=== PATIENT | female | born 1950 | race Caucasian/White ===

== ENCOUNTER 2017-04-20 00:40 | Day surgery (SDC) | payer OTHER ==
[~2017-04-20 00:40] MED LIST: ALBU90OI6 INH; ALBU90OI61 INH; ASPI81EC; ATEN50; ATOR10; AZIT250 PO; Altoprev20 MG; Aspirin EC81 MG; BUME1 PO; Bumetanide0.5 MG; CARI350 PO; CHOL10002; Coumadin5 MG PO; DULERA 200 MCG/13 GM INH; FURO40; FURO40 PO; GABA100; GABA300 PO; GLIP10 PO; GLIP2.5ER; HYDGUAL120 PO; IBUP800 PO; INSULANPEN SC; Keflex500 MG PO; LACT10SY PO; LEVFLO500 PO; LEVO750 PO; LEVSOD75; LEVSOD75 PO; LISI20 PO; LISI5 PO; LOSA25; LOVA40 PO; Lovastatin20 MG PO; META800 PO; METF500C PO; METH10; METH10 PO; METPRE4DP PO; Norco 5-325 Ta1 EACH PO; Novolog Fl100 UNIT/1 INJ; OXYACE5T PO; OXYC10ER PO; OXYC15ER PO; OXYC30 PO; OXYC30ER PO; PRED20 PO; Prinivil10 MG PO; RANI150 PO; ROSU10TA; ROXICODONE5 MG PO; SITA100T2 PO; SITA25T2 PO; TIOT18 INH; VARE1 PO; VENL37.5; VENL37.5 PO; VITAMIN D32000 UNI1 PO; WARF10 PO; WARF5 PO; Women's Daily1 EACH PO; [UNRECOGNIZED DRUG - MIXTURE]; [UNRECOGNIZED DRUG - OTHER] PO
[2017-04-20] MEDS ORDERED: DULERA 200 MCG/13 GM INH (11:19)
== END 2017-04-20 10:48 | disposition home or self-care (01) ==
LOC: ATC 00:40
DX: D12.3 Benign neoplasm of transverse colon (principal); Z86.718 Personal history of other venous thrombosis and embolism; E66.9 Obesity, unspecified; E11.40 Type 2 diabetes mellitus with diabetic neuropathy, unspecified
CPT/HCPCS: 96372; J1650

== ENCOUNTER 2017-04-21 00:20 | Day surgery (SDC) | payer OTHER | END 2017-04-21 10:12 | disposition home or self-care (01) | LOC: ATC 00:20 | DX: Z86.718 Personal history of other venous thrombosis and embolism (principal); K63.5 Polyp of colon; Z79.01 Long term (current) use of anticoagulants; Z79.4 Long term (current) use of insulin; Z79.84 Long term (current) use of oral hypoglycemic drugs; Z88.8 Allergy status to other drugs, medicaments and biological substances | CPT/HCPCS: 96372; J1650 ==

== ENCOUNTER 2017-04-22 00:48 | Day surgery (SDC) | payer OTHER | END 2017-04-22 10:42 | disposition home or self-care (01) | LOC: ATC 00:48 | DX: D12.3 Benign neoplasm of transverse colon (principal); Z86.718 Personal history of other venous thrombosis and embolism; E11.40 Type 2 diabetes mellitus with diabetic neuropathy, unspecified; Z79.4 Long term (current) use of insulin; F17.210 Nicotine dependence, cigarettes, uncomplicated | CPT/HCPCS: 96372; J1650 ==

== ENCOUNTER 2017-04-23 00:19 | Day surgery (SDC) | payer OTHER | END 2017-04-23 11:00 | disposition home or self-care (01) | LOC: ATC 00:19 | DX: D12.3 Benign neoplasm of transverse colon (principal); E11.40 Type 2 diabetes mellitus with diabetic neuropathy, unspecified; F17.210 Nicotine dependence, cigarettes, uncomplicated; Z86.718 Personal history of other venous thrombosis and embolism | CPT/HCPCS: 96372; J1650 ==

== ENCOUNTER 2017-07-13 00:18 | Day surgery (SDC) | payer OTHER | END 2017-07-13 08:40 | disposition home or self-care (01) | LOC: ATC 00:18 | DX: Z86.718 Personal history of other venous thrombosis and embolism (principal); K63.5 Polyp of colon; E66.9 Obesity, unspecified; Z79.01 Long term (current) use of anticoagulants; F17.210 Nicotine dependence, cigarettes, uncomplicated; E11.40 Type 2 diabetes mellitus with diabetic neuropathy, unspecified | CPT/HCPCS: 96372; J1650 ==

== ENCOUNTER 2017-07-16 01:11 | Day surgery (SDC) | payer OTHER | END 2017-07-16 09:42 | disposition home or self-care (01) | LOC: ATC 01:11 | DX: Z86.718 Personal history of other venous thrombosis and embolism (principal); K63.5 Polyp of colon; E11.9 Type 2 diabetes mellitus without complications; Z79.4 Long term (current) use of insulin | CPT/HCPCS: 96372; J1650 ==

== ENCOUNTER 2018-04-17 10:32 | Observation (INO) | payer OTHER ==
[~2018-04-17] VITALS: Ht 154.9 cm; Wt 87.0 kg
[~2018-04-17 10:32] MED LIST changes: +BUME2 PO; -Bumetanide0.5 MG
[2018-04-17 11:34] LABS: BASOPHILS ABSOLUTE AUTO 0.08 K/mm3 (0.00-0.23); BASOPHILS PERCENT AUTO 0 % (0-2); EOSINOPHILS ABSOLUTE AUTO 0.25 K/mm3 (0.00-0.68); EOSINOPHILS PERCENT AUTO 1 % (0-6); Hemoglobin 14.3 g/dL (11.5-16.0); IMMATURE GRAN ABSOLUTE AUTO 0.13 K/mm3 (0.00-0.10); IMMATURE GRAN PERCENT AUTO 1 % (0-1); LYMPHOCYTES PERCENT AUTO 17 % (21-46); MONOCYTES PERCENT AUTO 11 % (4-13); Mean Corpuscular HGB 29.2 pg (26.0-34.0); Mean Corpuscular HGB Conc 31.8 g/dL (31.5-36.5); Mean Corpuscular Volume 92 fL (80-100); NEUTROPHILS ABSOLUTE AUTO 13.68 K/mm3 (1.96-9.15); NEUTROPHILS PERCENT AUTO 70 % (41-73); Platelet Count 220 K/mm3 (150-400); RDW Coefficient Variation 14.5 % (11.7-14.2); RDW Standard Deviation 49.1 fL (35.1-46.3); Red Blood Cell Count 4.89 M/mm3 (3.80-5.20); White Blood Cell Count 19.44 K/mm3 (4.00-11.30)
[2018-04-17 11:58] LABS: Alanine Aminotransfer (ALT/SGP 16 U/L (12-78); Albumin, Blood 2.7 g/dL (3.4-5.0); Albumin/Globulin Ratio 0.5 (0.8-1.8); Alk Phos 106 U/L (50-136); Anion Gap 6 mmol/L (6-16); Aspartate Aminotrans (AST/SGOT 31 U/L (12-37); Bilirubin, Total 1.2 mg/dL (0.1-1.0); Blood Urea Nitrogen 41 mg/dL (8-24); Bun/Creatinine Ratio 30.8 (12.0-20.0); CO2, Blood 31 mmol/L (21-32); Calcium, Blood 8.5 mg/dL (8.5-10.1); Chloride, Blood 97 mmol/L (98-108); Creatinine, Blood 1.33 mg/dL (0.40-1.00); Glomerular Filtration Rate 42 (60-); Glucose, Blood 152 mg/dL (70-99); Potassium, Blood 4.4 mmol/L (3.5-5.5); Sodium, Blood 134 mmol/L (136-145); Total Protein, Blood 7.7 g/dL (6.4-8.2); Troponin I <0.015 ng/mL (0.000-0.040)
[2018-04-17] MEDS ORDERED: TRULICITY0.75 MG/0. (12:00)
[2018-04-17 12:03] LABS: Influenza A Negative (NEGATIVE); Influenza B Negative (NEGATIVE)
[2018-04-17 14:48] LABS: CPK Creatine Kinase 174 U/L (26-193)
[2018-04-17 15:58] LABS: Source, Urine Voided
[2018-04-17 16:21] LABS: Appearance, Urine Hazy (Clear); Bilirubin, Urine Neg (Neg); Blood, Urine 2+ (Neg); Color, Urine Yellow (P-Yellow); Glucose Qualitative, Urine Neg (Neg); Ketones, Urine Neg (Neg); Leukocyte Esterase, Urine 3+ (Neg); Nitrite, Urine Pos (Neg); Protein, Urine 2+ (Neg); Urobilinogen, Urine 1+ (Normal)
[2018-04-17 16:45] LABS: White Blood Cells, Urine 25-50 /hpf (0-5)
[2018-04-17 16:53] LABS: Bacteria Rare /hpf; Red Blood Cells, Urine 0-2 /hpf (0-2); Squamous Epithelial Cells Few /hpf (Few)
--- NOTE | 2018-04-17 18:03 | NUR ---
PT NEW ADMIT THIS PM. PT AXO X4. PT C/O PAIN IN HER BACK WHICH SHE RATES A 7/10. MEDS GIVEN PER EMAR. PT DENIES N/V. DENIES SOB. DYSPNEA UPON EXERTION. RESP E/U AT REST ON 3.5 L O2 NC. LUNGS DIMINISHED T/O. 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 MED REC INCOMPLETE. PT REPORTS HER WILL BRING IN A MED LIST TOMMORROW MORNING. 1 ASSIST WITH GAIT BELT AND FWW TO THE BS. NO OTHER SIGNIFICANT CHANGES THIS SHIFT.
[2018-04-17 19:38] LABS: Source, Urine Clean Catch
[2018-04-17 19:49] LABS: Appearance, Urine Hazy (Clear); Bilirubin, Urine Neg (Neg); Blood, Urine 2+ (Neg); Color, Urine Yellow (P-Yellow); Glucose Qualitative, Urine Neg (Neg); Ketones, Urine Neg (Neg); Leukocyte Esterase, Urine 3+ (Neg); Nitrite, Urine Neg (Neg); Protein, Urine 2+ (Neg); Specific Gravity, Urine 1.015 (1.003-1.022); Urobilinogen, Urine 1+ (Normal)
[2018-04-17 20:06] LABS: White Blood Cells, Urine 50-100 /hpf (0-5)
[2018-04-17 20:07] LABS: Bacteria Mod /hpf; Squamous Epithelial Cells Few /hpf (Few)
[2018-04-17 20:53] LABS: Adenovirus Not Detected (NOT DETECT); Bordetella pertussis Not Detected (NOT DETECT); Chlamydophila pneumoniae Not Detected (NOT DETECT); Coronavirus 229E Not Detected (NOT DETECT); Coronavirus HKU1 Not Detected (NOT DETECT); Coronavirus NL63 Not Detected (NOT DETECT); Coronavirus OC43 Not Detected (NOT DETECT); Human Metapneumovirus Not Detected (NOT DETECT); Human Rhinovirus/Enterovirus Not Detected (NOT DETECT); Influenza A/2009-H1 Not Detected (NOT DETECT); Influenza A/H1 Not Detected (NOT DETECT); Influenza A/H3 Not Detected (NOT DETECT); Influenza B Not Detected (NOT DETECT); Mycoplasma pneumoniae Not Detected (NOT DETECT); Parainfluenza Virus 1 Not Detected (NOT DETECT); Parainfluenza Virus 2 Not Detected (NOT DETECT); Parainfluenza Virus 3 Not Detected (NOT DETECT); Parainfluenza Virus 4 Not Detected (NOT DETECT); Respiratory Syncytial Virus Not Detected (NOT DETECT)
[2018-04-17 22:21] LABS: Influenza A Not Detected (NOT DETECT)
--- NOTE | 2018-04-18 04:19 | NUR ---
SHIFT SUMMARY PATIENT HAD NO ACUTE CHANGES OBSERVED THIS SHIFT. AXOX 3 AND ONE ASSIST W/GAIT/FWW TO [facility] [place] TWO PIVS REMAIN INTACT. NS INFUSED AT 100 mL/HR AND COMPLETE X ONE BAG. CALL CENTER SPECIALIST REPORTS NSR 77. ON 3.5 L O2 N/C AND RA AT HOME. PATIENT REPORTS BACK PAIN X 2 AND RECEIVED FENTANYL 50 MCG PER EMAR. ED FENTANYL ORDER Q10M DC'D. DENIES SOB AND N/V. CBG 289. CALL LIGHT IN REACH. BED IN LOWEST POSITION. WILL CONTINUE TO MONITOR UNTIL DAY SHIFT NURSE ASSUMES CARE.
[2018-04-18 04:55] LABS: Hemoglobin 13.5 g/dL (11.5-16.0); Mean Corpuscular HGB 28.7 pg (26.0-34.0); Mean Corpuscular HGB Conc 31.4 g/dL (31.5-36.5); Mean Corpuscular Volume 91 fL (80-100); Mean Platelet Volume 11.3 fL (9.1-12.4); NRBC ABSOLUTE 0.03 K/mm3 (0.00-0.02); NRBC Auto 0.2 /100 WBC (0.0-0.2); Platelet Count 235 K/mm3 (150-400); RDW Coefficient Variation 14.6 % (11.7-14.2); RDW Standard Deviation 49.2 fL (35.1-46.3); Red Blood Cell Count 4.71 M/mm3 (3.80-5.20); White Blood Cell Count 15.09 K/mm3 (4.00-11.30)
[2018-04-18 05:20] LABS: Albumin, Blood 2.4 g/dL (3.4-5.0); Albumin/Globulin Ratio 0.5 (0.8-1.8); Bilirubin, Total 0.8 mg/dL (0.1-1.0); Bun/Creatinine Ratio 29.3 (12.0-20.0); Calcium, Blood 8.3 mg/dL (8.5-10.1); Creatinine, Blood 1.23 mg/dL (0.40-1.00); Globulin, Blood 4.9 g/dL (2.2-4.0); Potassium, Blood 3.6 mmol/L (3.5-5.5); Total Protein, Blood 7.3 g/dL (6.4-8.2)
--- NOTE | 2018-04-18 18:33 | NUR ---
PATIENT HAS CONTINUED TO ASK FOR AND RECIEVE PAIN MEDS PER EMAR. SHE C/O PAIN TO HER BACK AND NECK. SHE IS ABLE TO AMUBLATE SLOWLY AROUND THE ROOM AND TO [facility] [place]. SHE HAS NOT BEEN SOB OR NV. PATIENT REPORTED CONSTIPATION ISSUES DT HER PAIN MED HISTORY. LACTULOSE GIVEN.
--- NOTE | 2018-04-19 04:34 | NUR ---
SHIFT SUMMARY PATIENT HAD NO ACUTE CHANGES OBSERVED THIS SHIFT. AXOX 3. REPORTS BACK PAIN ND RECEIVED ULTRAM 100 MG PER EMAR. PATIENT REPORTS LARGE BM AFTER LACTULOSE GIVEN TIMES ONE. CBG 85. ON 3L O2 NC. FENTANY GIVEN X ONE FOR BACK PAIN. CALL LIGHT IN REACH. BED IN LOWEST POSITION. WILL CONTINUE TO MONITOR UNTIL DAY SHIFT NURSE ASSUMES CARE.
--- NOTE | 2018-04-19 12:53 | NUR ---
DISCHARGE 1200 PATIENT DISCHARGED TO HOME WITH HH. NURSE WENT OVER DISCHARGE PAPERS WITH PATIENT AND EDUCATED PATINET ON DIABETIC DIET. NO NEW MEDS ORDERED. PATIENT WAS DRESSED AND BELONGINGS PACKED BY FAMILY. IVS REMOVED WITH NO SS OF INFECTION NOTED. PATIENT TAKEN TO CAR IN BY AIDE.
== END 2018-04-19 12:00 | disposition home health service (06) ==
LOC: ER 10:32 → MEDS 10:33 → ER 14:17 → MEDS 14:17 → ER 04-18 10:33 → MEDS 04-18 10:33 → EDPENDDIS 04-19 09:30 → ENPENDDIS 04-19 09:30 → MEDS 04-19 12:00
PROVIDERS: Emergency Medicine; ADMIT Internal Medicine
DX: M54.9 Dorsalgia, unspecified (principal); R09.02 Hypoxemia; I13.0 Hypertensive heart and chronic kidney disease with heart failure and stage 1 through stage 4 chronic kidney disease, or unspecified chronic kidney disease; I50.32 Chronic diastolic (congestive) heart failure; E11.22 Type 2 diabetes mellitus with diabetic chronic kidney disease; N18.3 Chronic kidney disease, stage 3 (moderate); E66.9 Obesity, unspecified; R53.1 Weakness; E78.5 Hyperlipidemia, unspecified; J44.9 Chronic obstructive pulmonary disease, unspecified; F17.210 Nicotine dependence, cigarettes, uncomplicated; K21.9 Gastro-esophageal reflux disease without esophagitis; Z86.718 Personal history of other venous thrombosis and embolism; Z88.8 Allergy status to other drugs, medicaments and biological substances; Z79.899 Other long term (current) drug therapy; Z68.33 Body mass index [BMI] 33.0-33.9, adult
CPT/HCPCS: 36415; 71046; 71260; 72110; 80053; 81001; 82550; 82947; 84484; 85025; 85027; 87070; 87077; 87086; 87186; 87205; 87486; 87581; 87633; 87798; 87804; 93005; 93010; 94760; 96361; 96365; 96366; 96372; 96375; 96376; 97116; 97162; 97530; 99285-25; G0378; J0456; J0696; J1650; J1885; J2405; J3010; J7030; J7050; J7120; Q9967

== ENCOUNTER 2018-10-28 12:10 | Day surgery (SDC) | payer OTHER ==
[~2018-10-28] VITALS: Ht 154.9 cm; Wt 81.0 kg
[~2018-10-28 12:10] MED LIST changes: +Novolog100 UNIT/2 SC; +OXYC10TA19 PO; +TRULICITY0.75 MG/0. SC
[2018-10-28] MEDS ORDERED: LACT10SY PO (13:22)
[2018-10-28] MEDS ORDERED: VITAMIN D-32000 UNIT PO (13:22)
[2018-10-28] MEDS ORDERED: METF500C PO (13:22)
--- NOTE | 2018-10-28 16:21 | NUR ---
PATIENT ARRIVED TO ICU ROOM 3 VIA ICU BED FROM THE [facility] AFTER HAVING A RIGHT FTA PROCEDURE DONE, PROX. POPLITEAL, SFA, AND COMMON FEMORAL WERE DONE, LEFT GROIN SITE SOFT, NONTENDER, NO HEMATOMA OR BLEEDING NOTED, PATIENT STATES SHE HAS "SOME DISCOMFORT AND PAIN AT THE GROIN", AFEBRILE, PATIENT MOSTLY SLEEPING AT THIS TIME, GAVE SOME ICE CHIPS AND PATIENT SHOWED NO PROBLEMS SWALLOWING, PATIENT WAS PLACED ON MONITOR, ORIENTED TO NEW ENVIRONMENT AND ROOM, CALL LIGHT GIVEN AND EXPLAINED, PATIENT VERBALIZED UNDERSTANDING, CALL LIGHT IN REACH, WILL CONTINUE TO MONITOR.
--- NOTE | 2018-10-28 17:55 | NUR ---
SHIFT SUMMARY NOTE: PATIENT IS RESTING COMFORTABLY AND MOSTLY SLEEPING, EASILY AROUSED, LEFT GROIN SITE, HAS ANGIOSEAL AND OPSITE, NO BLEEDING, SOFT, NONTENDER, NO HEMATOMA PRESENT, PATIENT IS OTHERWISE ALERT AND ORIENTED, VERBALIZED CONCERNS ABOUT BEING DISCHARGED TONIGHT D/T HUSBANDS NECK INJURY, SWALLOWED ICE CHIPS WITHOUT ANY PROBLEMS, VSS, AFEBRILE, NO S/S OF PAIN AT THIS TIME, CALL LIGHT IN REACH, WILL CONTINUE TO MONITOR.
--- NOTE | 2018-10-28 18:45 | NUR ---
FAMILY IN TO SEE PATIENT.
--- NOTE | 2018-10-28 19:20 | NUR ---
ASSUMED CARE BEDSIDE REPORT RECIEVED. PT IS LAYING IN BED AWAKE, ALERT, AND ORIENTED. PT REQUESTING TO USE THE BATHROOM AT THIS TIME. PT ROLLED AND PLACED ON BED JORDAN. PT DENIES PAIN OR DISCOMFORT AT THIS TIME. VITAL SIGNS STABLE. PT ON 2L O2 NC. PT WITH OPSITE IN PLACE TO LEFT FEMORAL ACCESS SITE, SITE IS SOFT, NONTENDER, AND NO HEMATOMA PRESENT. IV SALINE LOCKED. DAUGHTER AT BEDSIDE. WILL CONTINUE TO MONITOR.
--- NOTE | 2018-10-29 06:10 | NUR ---
SHIFT SUMMARY NO ACUTE CHANGES THIS SHIFT. PT SLEPT OFF AND ON THROUGHOUT THE NIGHT. PT HAS REMAINED ALERT AND ORIENTED WHEN AWAKE. PT HAS DENIED PAIN OR DISCOMFORT. VITAL SIGNS HAVE REMAINED STABLE. LEFT FEMORAL GROIN ACCESS SITE HAS REMAINED STABLE WITH DRESSING C/D/I. PT TOLERATING PO INTAKE WELL. PT UP TO BSC TO VOID WITH 1 PERSON ASSIST. WILL CONTINUE TO MONITOR AND REPORT OFF TO ONCOMING RN.
--- NOTE | 2018-10-29 07:15 | NUR ---
START OF SHIFT NOTE: RECEIVED REPORT FROM JUAN LUIS PATEL RN, ASSUMED CARE, PATIENT IS AWAKE, ALERT AND ORIENTED, WATCHING TV, RLEFT GROIN ACCESS SITE C/D/I, NO BLEEDING, SOFT, NONTENDER, NO HEMATOMA PRESENT, PATIENT DENIES PAIN, AFEBRILE, VSS, BLOOD GLUCOSE 178, NO COVERAGE REQUIRED, PATIENT IS AN EXTENDED RECOVERY THAT STAYED OVERNIGHT D/T LACK OF CARE AT HOME LAST NIGHT, WILL DISCHARGE THIS AM WITH DAUGHTER AND , LUNG SOUNDS CLEAR, NSR, WITH HR IN 60'S, CALL LIGHT IN REACH, WILL CONTINUE TO MONITOR.
--- NOTE | 2018-10-29 09:33 | NUR ---
PATIENT DISCHARGED TO HOME, DISCHARGE INSTRUCTIONS VERBAL AND WRITTEN GIVEN AND EXPLAINED TO PATIENT, SPOUSE, AND FAMILY, ALL VERBALIZED UNDERSTANDING, PIV IN RIGHT FOREARM REMOVED WITH TIP AND TUBING INTACT, PATIENT TOLERATED WELL, PATIENT WAS INSTRUCTED TO CALL NINA HUBBARD AND MAKE A F/U APPOINTMENT TO SEE DR. PLAZA, PATIENT VERBALIZED UNDERSTANDING, PATIENT LEFT VIA HOME WHEELCHAIR ACCOMPANIED BY ALL BELONGINGS AND SPOUSE/DAUGHTER.
[2019-01-13] MEDS ORDERED: PROAIR HFA INH (14:32)
[2019-01-13] MEDS ORDERED: ALIVE WOMEN S PO (14:34)
[2019-01-13] MEDS ORDERED: [UNRECOGNIZED DRUG - OTHER] PO (14:34)
== END 2018-10-29 09:33 | disposition home or self-care (01) ==
LOC: MHTC 12:10 → ICUE 16:39 → MHTC 10-29 09:33
DX: E11.51 Type 2 diabetes mellitus with diabetic peripheral angiopathy without gangrene (principal); I70.202 Unspecified atherosclerosis of native arteries of extremities, left leg; I10 Essential (primary) hypertension; E78.5 Hyperlipidemia, unspecified; J45.909 Unspecified asthma, uncomplicated; E03.9 Hypothyroidism, unspecified; K21.9 Gastro-esophageal reflux disease without esophagitis; F17.210 Nicotine dependence, cigarettes, uncomplicated; E66.9 Obesity, unspecified; Z88.8 Allergy status to other drugs, medicaments and biological substances; Z79.899 Other long term (current) drug therapy; Z79.4 Long term (current) use of insulin
CPT/HCPCS: 37225; 75625; 75710; 75716; 75774; 82947; 85347; 99152; 99153; C1714; C1769; C1884; C1887; C1894; C2623; J1644; J2250; J3010; J7030; J7042; Q9967

== ENCOUNTER 2019-01-14 09:44 | Day surgery (SDC) | payer OTHER ==
[~2019-01-14] VITALS: Ht 154.9 cm; Wt 82.0 kg
[~2019-01-14 09:44] MED LIST changes: +ALIVE WOMEN S PO; +PROAIR HFA INH; +VITAMIN D-32000 UNIT PO; +[UNRECOGNIZED DRUG - OTHER] PO
[2019-01-14 10:34] LABS: BASOPHILS ABSOLUTE AUTO 0.07 K/mm3 (0.00-0.23); BASOPHILS PERCENT AUTO 1 % (0-2); EOSINOPHILS ABSOLUTE AUTO 0.53 K/mm3 (0.00-0.68); EOSINOPHILS PERCENT AUTO 4 % (0-6); Hematocrit 45.8 % (33.0-51.0); Hemoglobin 14.3 g/dL (11.5-16.0); IMMATURE GRAN ABSOLUTE AUTO 0.04 K/mm3 (0.00-0.10); IMMATURE GRAN PERCENT AUTO 0 % (0-1); LYMPHOCYTES ABSOLUTE AUTO 4.54 K/mm3 (0.84-5.20); LYMPHOCYTES PERCENT AUTO 33 % (21-46); MONOCYTES ABSOLUTE AUTO 1.17 K/mm3 (0.16-1.47); MONOCYTES PERCENT AUTO 9 % (4-13); Mean Corpuscular HGB 28.2 pg (26.0-34.0); Mean Corpuscular HGB Conc 31.2 g/dL (31.5-36.5); Mean Corpuscular Volume 90 fL (80-100); Mean Platelet Volume 10.4 fL (9.1-12.4); NEUTROPHILS ABSOLUTE AUTO 7.45 K/mm3 (1.96-9.15); NEUTROPHILS PERCENT AUTO 54 % (41-73); Platelet Count 266 K/mm3 (150-400); RDW Coefficient Variation 16.1 % (11.7-14.2); RDW Standard Deviation 53.5 fL (35.1-46.3); Red Blood Cell Count 5.07 M/mm3 (3.80-5.20)
[2019-01-14 10:48] LABS: International Normalized Ratio 0.99; Prothrombin Time Results 10.5 Sec (9.7-11.5)
[2019-01-14 10:58] LABS: Calcium, Blood 9.1 mg/dL (8.5-10.1); Creatinine, Blood 1.28 mg/dL (0.40-1.00); Potassium, Blood 4.4 mmol/L (3.5-5.5)
--- NOTE | 2019-01-14 15:05 | NUR ---
PT SITTING UP, EATING AT THIS TIME. NADN. R FEMORAL SITE REMAINS CLEAR.VSS. CALL LIGHT WITHIN REACH.
--- NOTE | 2019-01-14 15:34 | NUR ---
PT FAMILY AT BEDSIDE. NADN. VSS. PT UP TO RESTROOM AND BACK WITHOUT DIFF. PT DRESSES SELF. SITE REMAINS CLEAR.
--- NOTE | 2019-01-14 15:50 | NUR ---
PT DC TO HOME VIA WC BY FRIEND. R FEM SITE REMAINS CLEAR.
== END 2019-01-14 22:54 | disposition home or self-care (01) ==
LOC: MHTC 09:44
PROVIDERS: Radiology Diagnostic Radiology
DX: E11.51 Type 2 diabetes mellitus with diabetic peripheral angiopathy without gangrene (principal); I70.202 Unspecified atherosclerosis of native arteries of extremities, left leg; E11.22 Type 2 diabetes mellitus with diabetic chronic kidney disease; D72.829 Elevated white blood cell count, unspecified
CPT/HCPCS: 36415; 37225; 75716; 75774; 80048; 85025; 85347; 85610; 99152; 99153; C1714; C1760; C1769; C1884; C1887; C1894; C2623; J1644; J2060; J2250; J3010; J7030; Q9967

== ENCOUNTER 2019-03-11 07:50 | Inpatient (IN) | payer OTHER ==
[~2019-03-11] VITALS: Ht 154.9 cm; Wt 83.5 kg
[2019-03-11 08:07] LABS: BASOPHILS ABSOLUTE AUTO 0.09 K/mm3 (0.00-0.23); BASOPHILS PERCENT AUTO 1 % (0-2); EOSINOPHILS PERCENT AUTO 3 % (0-6); Hematocrit 48.3 % (33.0-51.0); Hemoglobin 15.2 g/dL (11.5-16.0); IMMATURE GRAN ABSOLUTE AUTO 0.04 K/mm3 (0.00-0.10); IMMATURE GRAN PERCENT AUTO 0 % (0-1); LYMPHOCYTES ABSOLUTE AUTO 4.61 K/mm3 (0.84-5.20); LYMPHOCYTES PERCENT AUTO 32 % (21-46); MONOCYTES ABSOLUTE AUTO 1.24 K/mm3 (0.16-1.47); MONOCYTES PERCENT AUTO 9 % (4-13); Mean Corpuscular HGB 28.6 pg (26.0-34.0); Mean Corpuscular HGB Conc 31.5 g/dL (31.5-36.5); Mean Corpuscular Volume 91 fL (80-100); Mean Platelet Volume 10.9 fL (9.1-12.4); NEUTROPHILS ABSOLUTE AUTO 8.11 K/mm3 (1.96-9.15); NEUTROPHILS PERCENT AUTO 56 % (41-73); Platelet Count 229 K/mm3 (150-400); RDW Coefficient Variation 14.9 % (11.7-14.2); RDW Standard Deviation 49.8 fL (35.1-46.3); Red Blood Cell Count 5.31 M/mm3 (3.80-5.20); White Blood Cell Count 14.59 K/mm3 (4.00-11.30)
[2019-03-11 08:23] LABS: International Normalized Ratio 0.99; Prothrombin Time Results 10.5 Sec (9.7-11.5)
[2019-03-11 08:32] LABS: Albumin, Blood 3.4 g/dL (3.4-5.0); Albumin/Globulin Ratio 0.8 (0.8-1.8); Bilirubin, Total 0.4 mg/dL (0.1-1.0); Calcium, Blood 9.7 mg/dL (8.5-10.1); Creatinine, Blood 1.67 mg/dL (0.40-1.00); Globulin, Blood 4.3 g/dL (2.2-4.0); Potassium, Blood 4.3 mmol/L (3.5-5.5); Total Protein, Blood 7.7 g/dL (6.4-8.2); Troponin I 0.176 ng/mL (0.000-0.040)
--- NOTE | 2019-03-11 12:11 | NUR ---
pt arrived to pcu 8 via gurney from ed. report was obtained, pt able to ambulate to bathroom with a walker, she is a/ox3, pleasant and cooperative with care, follows commands well, denies chest pain at this time, lungs are clear t/o, resp even and unlabored, no cough noted at this time, she is currently on 2 liters 02 via n/c, hrr, tele in place running sr per monitor see strip, no edema noted, ppp+2, cap refill <3sec, vs stable, afebrile, iv sites are clear and patent, btx4 abd flat soft nontender, voids without diff, skin c/w/d, matank, jacqui, call light in reach. tech here to do echo.
[2019-03-11] MEDS ORDERED: Bumetanide2 MG PO (12:55)
[2019-03-11] MEDS ORDERED: LOVA40 PO (13:02)
--- NOTE | 2019-03-11 15:56 | NUR ---
echocardiogram completed
--- NOTE | 2019-03-11 19:34 | NUR ---
PT NOT SYMPTOMATIC THIS EVENING, CALLED AND SAID SHE CAN EAT DINNER THEN NPO AFTER MIDNIGHT, WILL CALL HER IF SHE BECOMES SYMTOMATIC. NO FURTHER CHANGES, CALL LIGHT IN REACH.
[2019-03-12 02:00] LABS: BASOPHILS ABSOLUTE AUTO 0.06 K/mm3 (0.00-0.23); BASOPHILS PERCENT AUTO 1 % (0-2); EOSINOPHILS ABSOLUTE AUTO 0.42 K/mm3 (0.00-0.68); EOSINOPHILS PERCENT AUTO 3 % (0-6); Hematocrit 41.5 % (33.0-51.0); Hemoglobin 13.3 g/dL (11.5-16.0); IMMATURE GRAN ABSOLUTE AUTO 0.04 K/mm3 (0.00-0.10); IMMATURE GRAN PERCENT AUTO 0 % (0-1); LYMPHOCYTES ABSOLUTE AUTO 4.98 K/mm3 (0.84-5.20); LYMPHOCYTES PERCENT AUTO 38 % (21-46); MONOCYTES ABSOLUTE AUTO 0.99 K/mm3 (0.16-1.47); MONOCYTES PERCENT AUTO 8 % (4-13); Mean Corpuscular HGB 29.6 pg (26.0-34.0); Mean Corpuscular Volume 92 fL (80-100); Mean Platelet Volume 11.4 fL (9.1-12.4); NEUTROPHILS ABSOLUTE AUTO 6.52 K/mm3 (1.96-9.15); NEUTROPHILS PERCENT AUTO 50 % (41-73); Platelet Count 203 K/mm3 (150-400); RDW Coefficient Variation 14.8 % (11.7-14.2); RDW Standard Deviation 50.2 fL (35.1-46.3); Red Blood Cell Count 4.49 M/mm3 (3.80-5.20); White Blood Cell Count 13.01 K/mm3 (4.00-11.30)
[2019-03-12 02:36] LABS: Albumin, Blood 2.8 g/dL (3.4-5.0); Albumin/Globulin Ratio 0.7 (0.8-1.8); Bilirubin, Total 0.3 mg/dL (0.1-1.0); Bun/Creatinine Ratio 26.3 (12.0-20.0); Calcium, Blood 8.7 mg/dL (8.5-10.1); Creatinine, Blood 1.71 mg/dL (0.40-1.00); Free Thyroxine 0.77 ng/dL (0.70-1.60); Globulin, Blood 3.8 g/dL (2.2-4.0); Potassium, Blood 4.6 mmol/L (3.5-5.5); Total Protein, Blood 6.6 g/dL (6.4-8.2)
[2019-03-12 02:41] LABS: Triiodothyronine, Free 1.78 pg/mL (2.18-3.98)
--- NOTE | 2019-03-12 06:28 | NUR ---
SHIFT SUMMARY PT RESTING IN ROOM COMFORTABLY AT THIS TIME. NO ACUTE CHANGES IN STATUS T/O NIGHT. PT SLEPT WELL T/O NIGHT, DENIED ANY CP. RESP EVEN UNLABORED ON 2L NC W/ SATS AT 100%, NC REMOVED PT SATS REMAINED >95% ON RA. HEPARIN GTT INFUSING IN PIV, NS ALSO INFUSING IN SECOND PIV. PT ABLE TO TRANSFER TO W/ SBA AND 4WW. DENIED OTHER NEEDS. CALL LIGHT IN REACH.
--- NOTE | 2019-03-12 08:00 | NUR ---
pt is scheduled for an angio this am, she has been npo since mid, a/ox3, pleasant and cooperative with care, is very anxious about procedure, lungs are clear, dim in bases, resp even and unlabored, is on r/a, no cough noted, hrr, tele in place running sr per monitor, see strip, no edema noted, ppp+1, cap refill <3sec, vs stable, afebrile, iv sites are clear and patent, btx4, abd flat soft nontender, voids without diff, skin c/w/d, maew, jacqui, call light in reach.
--- NOTE | 2019-03-12 10:18 | NUR ---
pt arrived to room from yard laborer, will need bipass, family is tearful, vs stable, tr band site is clear. call light in reach.
--- NOTE | 2019-03-12 10:51 | NUR ---
Spiritual care visit conducted. Patient is lying in bed and alert. Several family members are present in the room. Patient and family state that they recently received "deflating news." They explain that they were hoping to manage patient's heart issues with medication and now they hear that patient with haave to be transported north for heart surgery. I listen empathically and provide prayer. I will continue to remain available to patient and family.
--- NOTE | 2019-03-12 12:57 | NUR ---
PT LEFT FOR [facility] IN [place], REPORT WAS GIVEN TO [place] AMIN AND EMT THAT IS TRANSPORTING HER. FAMILY IN ATTENDENCE.
== END 2019-03-12 12:54 | disposition short-term general hospital (02) | DRG 281 ==
LOC: ER 07:50 → PCU 07:51
PROVIDERS: Emergency Medicine; Nurse Practitioner Acute Care; ADMIT Internal Medicine
PROC: 4A023N7 Measurement of Cardiac Sampling and Pressure, Left Heart, Percutaneous Approach (ICD-10-PCS; principal; 2019-03-12)
PROC: B2111ZZ Fluoroscopy of Multiple Coronary Arteries using Low Osmolar Contrast (ICD-10-PCS; 2019-03-12)
DX: I21.4 Non-ST elevation (NSTEMI) myocardial infarction (principal); F11.20 Opioid dependence, uncomplicated; I50.32 Chronic diastolic (congestive) heart failure; N17.9 Acute kidney failure, unspecified; I13.0 Hypertensive heart and chronic kidney disease with heart failure and stage 1 through stage 4 chronic kidney disease, or unspecified chronic kidney disease; Z90.81 Acquired absence of spleen; Z79.4 Long term (current) use of insulin; E11.22 Type 2 diabetes mellitus with diabetic chronic kidney disease; N18.3 Chronic kidney disease, stage 3 (moderate); E78.5 Hyperlipidemia, unspecified; E11.51 Type 2 diabetes mellitus with diabetic peripheral angiopathy without gangrene; K21.9 Gastro-esophageal reflux disease without esophagitis; J44.9 Chronic obstructive pulmonary disease, unspecified; Z86.718 Personal history of other venous thrombosis and embolism; F17.210 Nicotine dependence, cigarettes, uncomplicated; E03.9 Hypothyroidism, unspecified; E66.9 Obesity, unspecified; Z68.33 Body mass index [BMI] 33.0-33.9, adult; I25.10 Atherosclerotic heart disease of native coronary artery without angina pectoris
CPT/HCPCS: 36415; 71045; 80053; 82947; 84145; 84439; 84443; 84481; 84484; 85025; 85347; 85379; 85610; 85730; 93005; 93010; 93306; 93458; 94760; 96365; 96366; 96375; 99152; 99153; 99285-25; C1769; C1894; J1644; J2250; J2405; J3010; J7030; Q9967

== ENCOUNTER 2019-04-03 13:16 | Emergency (ER) | payer OTHER ==
[~2019-04-03] VITALS: Ht 154.9 cm; Wt 83.9 kg
[~2019-04-03 13:16] MED LIST changes: +Bumetanide2 MG PO
[2019-04-03 14:03] LABS: BASOPHILS ABSOLUTE AUTO 0.07 K/mm3 (0.00-0.23); BASOPHILS PERCENT AUTO 1 % (0-2); EOSINOPHILS ABSOLUTE AUTO 0.51 K/mm3 (0.00-0.68); EOSINOPHILS PERCENT AUTO 4 % (0-6); Hematocrit 40.4 % (33.0-51.0); Hemoglobin 12.4 g/dL (11.5-16.0); IMMATURE GRAN ABSOLUTE AUTO 0.04 K/mm3 (0.00-0.10); IMMATURE GRAN PERCENT AUTO 0 % (0-1); LYMPHOCYTES ABSOLUTE AUTO 3.55 K/mm3 (0.84-5.20); LYMPHOCYTES PERCENT AUTO 27 % (21-46); MONOCYTES ABSOLUTE AUTO 0.75 K/mm3 (0.16-1.47); MONOCYTES PERCENT AUTO 6 % (4-13); Mean Corpuscular HGB 28.4 pg (26.0-34.0); Mean Corpuscular HGB Conc 30.7 g/dL (31.5-36.5); Mean Corpuscular Volume 93 fL (80-100); Mean Platelet Volume 10.5 fL (9.1-12.4); NEUTROPHILS ABSOLUTE AUTO 8.42 K/mm3 (1.96-9.15); NEUTROPHILS PERCENT AUTO 63 % (41-73); Platelet Count 320 K/mm3 (150-400); RDW Coefficient Variation 15.1 % (11.7-14.2); RDW Standard Deviation 51.3 fL (35.1-46.3); Red Blood Cell Count 4.36 M/mm3 (3.80-5.20); White Blood Cell Count 13.34 K/mm3 (4.00-11.30)
[2019-04-03 14:24] LABS: Alanine Aminotransfer (ALT/SGP 18 U/L (12-78); Albumin, Blood 2.9 g/dL (3.4-5.0); Albumin/Globulin Ratio 0.7 (0.8-1.8); Alk Phos 77 U/L (50-136); Anion Gap 6 mmol/L (6-16); Aspartate Aminotrans (AST/SGOT 12 U/L (12-37); Bilirubin, Total 0.3 mg/dL (0.1-1.0); Blood Urea Nitrogen 23 mg/dL (8-24); Bun/Creatinine Ratio 21.3 (12.0-20.0); CO2, Blood 24 mmol/L (21-32); Calcium, Blood 8.5 mg/dL (8.5-10.1); Chloride, Blood 110 mmol/L (98-108); Creatinine, Blood 1.08 mg/dL (0.40-1.00); Globulin, Blood 3.9 g/dL (2.2-4.0); Glomerular Filtration Rate 53 (60-); Glucose, Blood 267 mg/dL (70-99); Potassium, Blood 4.7 mmol/L (3.5-5.5); Sodium, Blood 140 mmol/L (136-145); Total Protein, Blood 6.8 g/dL (6.4-8.2); Troponin I <0.015 ng/mL (0.000-0.040)
== END 2019-04-03 15:30 | disposition home or self-care (01) ==
LOC: ER 13:16
PROVIDERS: Emergency Medicine
DX: I50.22 Chronic systolic (congestive) heart failure (principal); E11.22 Type 2 diabetes mellitus with diabetic chronic kidney disease; N18.3 Chronic kidney disease, stage 3 (moderate); E11.51 Type 2 diabetes mellitus with diabetic peripheral angiopathy without gangrene; I73.9 Peripheral vascular disease, unspecified; E78.5 Hyperlipidemia, unspecified; J44.9 Chronic obstructive pulmonary disease, unspecified; F17.200 Nicotine dependence, unspecified, uncomplicated; Z88.8 Allergy status to other drugs, medicaments and biological substances; Z79.899 Other long term (current) drug therapy; Z79.4 Long term (current) use of insulin; Z79.51 Long term (current) use of inhaled steroids
CPT/HCPCS: 36415; 71046; 80053; 83880; 84484; 85025; 93005; 93010; 99284-25

== ENCOUNTER 2019-05-28 16:15 | Observation (INO) | payer OTHER ==
[~2019-05-28] VITALS: Ht 154.9 cm; Wt 81.4 kg
[~2019-05-28 16:15] MED LIST changes: -ALIVE WOMEN S PO; -Bumetanide2 MG PO; +METF500 PO; -PROAIR HFA INH; -[UNRECOGNIZED DRUG - OTHER] PO
[2019-05-28 17:00] LABS: BASOPHILS ABSOLUTE AUTO 0.05 K/mm3 (0.00-0.23); BASOPHILS PERCENT AUTO 0 % (0-2); EOSINOPHILS ABSOLUTE AUTO 0.43 K/mm3 (0.00-0.68); EOSINOPHILS PERCENT AUTO 3 % (0-6); Hematocrit 40.5 % (33.0-51.0); Hemoglobin 12.8 g/dL (11.5-16.0); IMMATURE GRAN ABSOLUTE AUTO 0.07 K/mm3 (0.00-0.10); IMMATURE GRAN PERCENT AUTO 0 % (0-1); LYMPHOCYTES ABSOLUTE AUTO 3.32 K/mm3 (0.84-5.20); LYMPHOCYTES PERCENT AUTO 21 % (21-46); MONOCYTES ABSOLUTE AUTO 0.84 K/mm3 (0.16-1.47); MONOCYTES PERCENT AUTO 5 % (4-13); Mean Corpuscular HGB 28.3 pg (26.0-34.0); Mean Corpuscular HGB Conc 31.6 g/dL (31.5-36.5); Mean Corpuscular Volume 89 fL (80-100); Mean Platelet Volume 11.1 fL (9.1-12.4); NEUTROPHILS ABSOLUTE AUTO 11.05 K/mm3 (1.96-9.15); NEUTROPHILS PERCENT AUTO 70 % (41-73); Platelet Count 303 K/mm3 (150-400); RDW Standard Deviation 48.8 fL (35.1-46.3); Red Blood Cell Count 4.53 M/mm3 (3.80-5.20); White Blood Cell Count 15.76 K/mm3 (4.00-11.30)
[2019-05-28 17:21] LABS: Alanine Aminotransfer (ALT/SGP 18 U/L (12-78); Albumin, Blood 3.1 g/dL (3.4-5.0); Albumin/Globulin Ratio 0.7 (0.8-1.8); Alk Phos 96 U/L (50-136); Anion Gap 3 mmol/L (6-16); Aspartate Aminotrans (AST/SGOT 28 U/L (12-37); Bilirubin, Total 0.4 mg/dL (0.1-1.0); Blood Urea Nitrogen 59 mg/dL (8-24); CO2, Blood 31 mmol/L (21-32); Calcium, Blood 8.8 mg/dL (8.5-10.1); Chloride, Blood 101 mmol/L (98-108); Creatinine, Blood 1.79 mg/dL (0.40-1.00); Globulin, Blood 4.6 g/dL (2.2-4.0); Glomerular Filtration Rate 30 (60-); Glucose, Blood 162 mg/dL (70-99); Sodium, Blood 135 mmol/L (136-145); Total Protein, Blood 7.7 g/dL (6.4-8.2); Troponin I <0.015 ng/mL (0.000-0.040)
[2019-05-28] MEDS ORDERED: ATOR40TA PO (18:22)
[2019-05-28] MEDS ORDERED: TICA90TA PO (18:22)
[2019-05-28] MEDS ORDERED: METO25 PO (18:23)
[2019-05-28] MEDS ORDERED: NITR.4SL SL (18:23)
[2019-05-28] MEDS ORDERED: ALIVE ONCE DAI1 EACH PO (19:57)
[2019-05-28] MEDS ORDERED: Aspir 8181 MG PO (19:57)
[2019-05-28] MEDS ORDERED: Ventolin/Prove6.7 GM INH (19:57)
[2019-05-28] MEDS ORDERED: CLON.1 PO (19:58)
[2019-05-28] MEDS ORDERED: MONT10T PO (19:58)
[2019-05-28] MEDS ORDERED: Bumetanide2 MG PO (20:00)
--- NOTE | 2019-05-28 22:15 | NUR ---
RECEIVED REPORT FROM [facility] ED RN. PT TRANSPORTED TO PCU VIA GURNEY, NO S/S ACUTE DISTRESS NOTED. ASSISTED PT TO A POSITION OF COMFORT. DENIES ANY OTHER NEEDS AT THIS TIME. CALL LIGHT AND POSSESSIONS IN REACH, WILL CONTINUE TO MONITOR.
[2019-05-29 04:45] LABS: Anion Gap 9 mmol/L (6-16); Blood Urea Nitrogen 60 mg/dL (8-24); Bun/Creatinine Ratio 34.3 (12.0-20.0); CO2, Blood 29 mmol/L (21-32); Calcium, Blood 8.5 mg/dL (8.5-10.1); Chloride, Blood 101 mmol/L (98-108); Creatinine, Blood 1.75 mg/dL (0.40-1.00); Glomerular Filtration Rate 31 (60-); Glucose, Blood 183 mg/dL (70-99); Potassium, Blood 3.2 mmol/L (3.5-5.5); Sodium, Blood 139 mmol/L (136-145); Troponin I <0.015 ng/mL (0.000-0.040)
--- NOTE | 2019-05-29 08:15 | NUR ---
PT RESTING IN BED COMFORTABLY, IN NO ACUTE DISTRESS. WAS MONITORED EVERY 1-2 HOURS WITH NEEDS MET. DENIES ANY NEEDS AT THIS TIME. CALL LIGHT AND POSSESSIONS IN REACH, BED IN LOW AND LOCKED POSITION. REPORTED OFF TO ELOISA MARRUFO.
--- NOTE | 2019-05-29 17:29 | NUR ---
SHIFT SUMAMRY PT A&Ox4; CALM AND COOPERATIVE [facility]. PT RESTING IN BED DURING SHIFT. UP TO BATHROOM IND THIS AM; PT REPORTS SIGNIFICANT SOB WITH EXERTION; SBA TO BATHROOM THIS AFTERNOON. PT REPORTS PAIN TO BLE; MEDICATED WITH SCHEDULED METHADONE PER EMAR WITH POSITIVE RESULTS. SPO2 >90% ON RA, PT REPORTS SOB WITH EXERTION; LS CLEAR T/O SHIFT; NO S/SX OF DISTRESS AT REST. PT DENIES CHEST PAIN/PRESSURE; NAUSEA AND DIZZINESS T/O SHIFT. PT STARTED ON PLAVIX THIS EVENING. VSS. NO OTHER ACUTE CHANGES NOTED DURING SHIFT. WILL CONTINUE TO MONITOR UNITL REPORT GIVEN TO ONCOMING RN.
[2019-05-30 04:09] LABS: Bun/Creatinine Ratio 32.1 (12.0-20.0); Calcium, Blood 8.8 mg/dL (8.5-10.1); Creatinine, Blood 1.56 mg/dL (0.40-1.00); Potassium, Blood 4.1 mmol/L (3.5-5.5)
--- NOTE | 2019-05-30 06:14 | NUR ---
SHIFT SUMMARY PATIENT PLEASENT THROUGHOUT THE NIGHT, HOWEVER PATIENT APPEARS UNRECEPTIVE TO EDUCATION REGARDING DIET AND HOW IT AFFECTS BLOOD SUGAR LEVELS. PATIENT HAS APPEARED TO SLEEP WELL THROUGHOUT THE NIGHT. PATIENT MEDICATED FOR PAIN PER EMAR. PATIENT CURRENTLY APPEARS TO BE SLEEPING. WILL CONTINUE TO MONITOR PATIENT AND GIVE BEDSIDE REPORT TO ONCOMING RN.
--- NOTE | 2019-05-30 18:15 | NUR ---
SHIFT SUMMARY PT A&Ox4; CALM AND COOPERATIVE WITH CARE. PT RESTING IN BED; SBA TO BATHROOM; THIS AM PT REPORTING SIGNIFICANT SOB ON EXERTION; USING 2L O2 VIA NC PRN FOR SOB; THIS AFTENROON PT STATES LESS SOB WITH EXERTION, NO LONGER REQUIRING O2 FOR RECOVERY AFTER AMBULATION. SPO2 >90% T/O SHIFT; LS CLEAR; DIM IN BASES T/O SHIFT. PT REPORTS TAKING HOME LACTULOSE; DENIES HAVING ADDITIONAL HOME MEDICATIONS IN ROOM; DR LAO NOTIFIED. PT REPORTS TAKING LANTUS 50UNITS DAILY; NEW ORDERS FOR ENTERED FOR LANTUS 20 UNITS. PLANS FOR NPO AFTER MIDNIGHT; PT EDCUATED. PER TELE HR 50-70'S; VSS. NO OTHER ACUTE CHANGES NOTED DURING SHIFT. WILL CONTINUE TO MONITOR UNITL REPORT GIVEN TO ONCJOANA AMIN
--- NOTE | 2019-05-30 19:15 | NUR ---
OPENING NOTE RECEIVED REPORT FROM YARON AMIN AND ASSUMED PT CARE. PT IS UP TO THE BATHROOM INDEPENDENTLY, DENIES ANY NEEDS OR CONCERNS AT THIS TIME. PT IS MEDICAL STATUS WITH TELE, MONITOR SHOWS SR IN THE 60'S WITH OCCASSIONAL PVC'S. WILL CONTINUE TO MONITOR FOR RESPIRATORY OR CARDIAC CHANGES, PLAN FOR ANGIO IN THE AM.
--- NOTE | 2019-05-31 05:48 | NUR ---
SHIFT SUMMARY PT HAS RESTED OFF AND ON THROUGH SHIFT, C/O MILD ANXIETY R/T PLAN FOR ANGIO THIS AM. ANSWERED QUESTIONS AND PROVIDED REASSURANCE. PT STATES "I JUST DIDN'T WANT TO HAVE TO GO THROUGH THIS AGAIN". AGREEABLE TO PLAN FOR ANGIO "IF THE DOCTOR THINKS I NEED IT THIS MORNING". DENIES CHEST PAIN, C/O SHORTNESS OF BREATH WITH AMBULATION TO BRP. 2L O2 PRN FOR RECOVERY FROM [facility]. DENIES OTHER COMPLAINTS THIS MORNING. OVERALL STATUS: UNCHANGED. WILL REPORT OFF TO THE DAY SHIFT RN, PT DECLINES BEDSIDE REPORT THIS MORNING AND STATES "JUST LET ME SLEEP".
[2019-05-31 09:08] LABS: Bun/Creatinine Ratio 31.1 (12.0-20.0); Calcium, Blood 9.1 mg/dL (8.5-10.1); Creatinine, Blood 1.51 mg/dL (0.40-1.00); Potassium, Blood 4.2 mmol/L (3.5-5.5)
[2019-05-31] MEDS ORDERED: AMLO5 PO (11:51)
[2019-05-31] MEDS ORDERED: CLOP75 PO (11:51)
--- NOTE | 2019-05-31 12:56 | NUR ---
DISCHARGE TEACHING DONE AT THIS TIME. PT STATES UNDERSTANDING. EDUCATION MATERIAL HAS BEEN PRINTED AND GIVEN TO HER. PT INSTRUCTED TO F/U WITH CARDIOLOGY IN 1 WEEK OR JESSICA IN ER FOR ANY WORSENING PROBLEMS OR CONCERNS. PT IS CURRENTLY SITTING AT THE BEDSIDE EATING LUNCH, VSS, SHE IS CALLING HER CAREGIVER FOR TRANSPORTATION. CALL LIGHT IN REACH.
== END 2019-05-31 14:04 | disposition home or self-care (01) ==
LOC: ER 16:15 → PCU 16:16
PROVIDERS: Hospitalist; Internal Medicine Interventional Cardiology; Physician Assistant; ADMIT Internal Medicine
DX: R06.09 Other forms of dyspnea (principal); N17.9 Acute kidney failure, unspecified; I13.0 Hypertensive heart and chronic kidney disease with heart failure and stage 1 through stage 4 chronic kidney disease, or unspecified chronic kidney disease; E11.22 Type 2 diabetes mellitus with diabetic chronic kidney disease; E11.51 Type 2 diabetes mellitus with diabetic peripheral angiopathy without gangrene; I25.10 Atherosclerotic heart disease of native coronary artery without angina pectoris; I50.20 Unspecified systolic (congestive) heart failure; Z88.8 Allergy status to other drugs, medicaments and biological substances; Z79.02 Long term (current) use of antithrombotics/antiplatelets; Z79.82 Long term (current) use of aspirin; Z79.84 Long term (current) use of oral hypoglycemic drugs; Z79.899 Other long term (current) drug therapy; N18.3 Chronic kidney disease, stage 3 (moderate); J44.9 Chronic obstructive pulmonary disease, unspecified; F17.210 Nicotine dependence, cigarettes, uncomplicated
CPT/HCPCS: 36415; 71046; 80048; 80053; 82947; 83880; 84484; 85025; 93005; 93010; 93308; 93321; 96372; 99285-25; A9270-GY; G0378; J1644; J7030

== ENCOUNTER 2019-08-03 10:18 | Emergency (ER) | payer OTHER ==
[~2019-08-03] VITALS: Ht 154.9 cm; Wt 81.7 kg
[~2019-08-03 10:18] MED LIST changes: +ALIVE ONCE DAI1 EACH PO; +AMLO5 PO; +ATOR40TA PO; +Aspir 8181 MG PO; +Bumetanide2 MG PO; +CLON.1 PO; +CLOP75 PO; +METO25 PO; +MONT10T PO; +NITR.4SL SL; +TICA90TA PO; +Ventolin/Prove6.7 GM INH
[2019-08-03 11:15] LABS: BASOPHILS ABSOLUTE AUTO 0.05 K/mm3 (0.00-0.23); BASOPHILS PERCENT AUTO 0 % (0-2); EOSINOPHILS ABSOLUTE AUTO 0.28 K/mm3 (0.00-0.68); EOSINOPHILS PERCENT AUTO 2 % (0-6); Hematocrit 41.4 % (33.0-51.0); Hemoglobin 13.5 g/dL (11.5-16.0); IMMATURE GRAN ABSOLUTE AUTO 0.04 K/mm3 (0.00-0.10); IMMATURE GRAN PERCENT AUTO 0 % (0-1); LYMPHOCYTES ABSOLUTE AUTO 3.49 K/mm3 (0.84-5.20); LYMPHOCYTES PERCENT AUTO 27 % (21-46); MONOCYTES ABSOLUTE AUTO 0.86 K/mm3 (0.16-1.47); MONOCYTES PERCENT AUTO 7 % (4-13); Mean Corpuscular HGB 28.2 pg (26.0-34.0); Mean Corpuscular HGB Conc 32.6 g/dL (31.5-36.5); Mean Corpuscular Volume 86 fL (80-100); Mean Platelet Volume 10.7 fL (9.1-12.4); NEUTROPHILS ABSOLUTE AUTO 8.41 K/mm3 (1.96-9.15); NEUTROPHILS PERCENT AUTO 64 % (41-73); Platelet Count 303 K/mm3 (150-400); RDW Coefficient Variation 13.7 % (11.7-14.2); RDW Standard Deviation 43.1 fL (35.1-46.3); Red Blood Cell Count 4.79 M/mm3 (3.80-5.20); White Blood Cell Count 13.13 K/mm3 (4.00-11.30)
[2019-08-03 11:29] LABS: Albumin, Blood 3.5 g/dL (3.4-5.0); Albumin/Globulin Ratio 0.6 (0.8-1.8); Bilirubin, Total 0.4 mg/dL (0.1-1.0); Bun/Creatinine Ratio 38.3 (12.0-20.0); Creatinine, Blood 2.77 mg/dL (0.40-1.00); Globulin, Blood 5.4 g/dL (2.2-4.0); Potassium, Blood 2.6 mmol/L (3.5-5.5); Total Protein, Blood 8.9 g/dL (6.4-8.2)
[2019-08-03] MEDS ORDERED: K-Dur20 MEQ PO (13:34)
== END 2019-08-03 14:29 | disposition home or self-care (01) ==
LOC: ER 10:18
PROVIDERS: Emergency Medicine
DX: E87.6 Hypokalemia (principal); E87.1 Hypo-osmolality and hyponatremia; E86.0 Dehydration; E11.22 Type 2 diabetes mellitus with diabetic chronic kidney disease; N18.9 Chronic kidney disease, unspecified; I25.2 Old myocardial infarction; E11.51 Type 2 diabetes mellitus with diabetic peripheral angiopathy without gangrene; I73.9 Peripheral vascular disease, unspecified; J44.9 Chronic obstructive pulmonary disease, unspecified; I50.9 Heart failure, unspecified; K21.9 Gastro-esophageal reflux disease without esophagitis; Z86.718 Personal history of other venous thrombosis and embolism; E78.5 Hyperlipidemia, unspecified; Z87.891 Personal history of nicotine dependence; Z88.8 Allergy status to other drugs, medicaments and biological substances; Z79.82 Long term (current) use of aspirin; Z79.899 Other long term (current) drug therapy
CPT/HCPCS: 36415; 80053; 85025; 93005; 93010; 96360; 99283-25; A9270; J7030

== ENCOUNTER 2019-08-18 06:33 | Day surgery (SDC) | payer OTHER ==
[~2019-08-18] VITALS: Ht 129.5 cm; Wt 81.0 kg
[~2019-08-18 06:33] MED LIST changes: +K-Dur20 MEQ PO; +NOVOLOG FL100 UNIT/1
[2019-08-18 07:35] LABS: Bun/Creatinine Ratio 42.7 (12.0-20.0); Creatinine, Blood 2.34 mg/dL (0.40-1.00); Potassium, Blood 3.7 mmol/L (3.5-5.5)
--- NOTE | 2019-08-18 11:15 | NUR ---
PT VERBALIZED UNDERSTANDING OF WRITTEN AND VERBAL D/C INST. PT UP TO BATHROOM /C SBA. TOLERATED WELL. -BLEEDING OR SWELLING R GROIN. IV REMOVED. PT TAKEN OUT OF THE HRT CENTER VIA W/C.
== END 2019-08-18 11:15 | disposition home or self-care (01) ==
LOC: MHTC 06:33
PROVIDERS: Radiology Diagnostic Radiology
DX: I70.1 Atherosclerosis of renal artery (principal); I10 Essential (primary) hypertension; E11.9 Type 2 diabetes mellitus without complications; E66.9 Obesity, unspecified; J45.909 Unspecified asthma, uncomplicated; K21.9 Gastro-esophageal reflux disease without esophagitis; E03.9 Hypothyroidism, unspecified; F17.210 Nicotine dependence, cigarettes, uncomplicated; Z79.899 Other long term (current) drug therapy; Z79.82 Long term (current) use of aspirin; Z79.02 Long term (current) use of antithrombotics/antiplatelets; Z79.4 Long term (current) use of insulin; Z68.42 Body mass index [BMI] 45.0-49.9, adult
CPT/HCPCS: 36252; 80048; 82947; 99152; 99153; C1760; C1769; C1887; C1894; J1644; J2250; J3010; J7030; J7040; J7042; Q9967

== ENCOUNTER 2019-09-14 06:20 | Day surgery (SDC) | payer OTHER ==
[~2019-09-14] VITALS: Ht 154.9 cm; Wt 81.0 kg
[~2019-09-14 06:20] MED LIST changes: +BASAGLAR K100 UNIT/1 SC; -NOVOLOG FL100 UNIT/1; +NOVOLOG FL100 UNIT/3 SC; +VITAMIN D31000 UNI1 PO; +[UNRECOGNIZED DRUG - OTHER] PO
--- NOTE | 2019-09-14 12:52 | NUR ---
PT UP TO BATHROOM, UP AND DRESSED. DISCHARGE GONE OVER WITH PT, VERBALIZES UNDERSTANDING. SALINE LOCK OUT WITH CATHETER INTACT. L FEM SITE STABLE. PT TO PRIVATE VEHICLE PER W/C.
== END 2019-09-14 13:00 | disposition home or self-care (01) ==
LOC: MHTC 06:20
DX: I70.213 Atherosclerosis of native arteries of extremities with intermittent claudication, bilateral legs (principal); Z88.8 Allergy status to other drugs, medicaments and biological substances
CPT/HCPCS: 37224; 37228; 75716; 75774; 82947; 85347; 99152; 99153; C1725; C1760; C1769; C1887; C1894; C2623; J1644; J2250; J3010; J7030; Q9967

== ENCOUNTER 2020-04-29 12:50 | Emergency (ER) | payer OTHER ==
[~2020-04-29] VITALS: Ht 154.9 cm; Wt 74.8 kg
[~2020-04-29 12:50] MED LIST changes: +NEURONTIN300 MG PO
[2020-04-29 14:40] LABS: BASOPHILS ABSOLUTE AUTO 0.04 K/mm3 (0.00-0.23); BASOPHILS PERCENT AUTO 0 % (0-2); EOSINOPHILS ABSOLUTE AUTO 0.08 K/mm3 (0.00-0.68); EOSINOPHILS PERCENT AUTO 1 % (0-6); Hematocrit 35.9 % (33.0-51.0); Hemoglobin 11.6 g/dL (11.5-16.0); IMMATURE GRAN ABSOLUTE AUTO 0.08 K/mm3 (0.00-0.10); IMMATURE GRAN PERCENT AUTO 1 % (0-1); LYMPHOCYTES ABSOLUTE AUTO 2.37 K/mm3 (0.84-5.20); LYMPHOCYTES PERCENT AUTO 16 % (21-46); MONOCYTES ABSOLUTE AUTO 0.79 K/mm3 (0.16-1.47); MONOCYTES PERCENT AUTO 5 % (4-13); Mean Corpuscular HGB 27.4 pg (26.0-34.0); Mean Corpuscular HGB Conc 32.3 g/dL (31.5-36.5); Mean Corpuscular Volume 85 fL (80-100); Mean Platelet Volume 10.2 fL (9.1-12.4); NEUTROPHILS ABSOLUTE AUTO 11.19 K/mm3 (1.96-9.15); NEUTROPHILS PERCENT AUTO 77 % (41-73); Platelet Count 370 K/mm3 (150-400); RDW Coefficient Variation 16.2 % (11.7-14.2); RDW Standard Deviation 49.9 fL (35.1-46.3); Red Blood Cell Count 4.24 M/mm3 (3.80-5.20); White Blood Cell Count 14.55 K/mm3 (4.00-11.30)
[2020-04-29 15:07] LABS: Bun/Creatinine Ratio 45.1 (12.0-20.0); Calcium, Blood 8.9 mg/dL (8.5-10.1); Creatinine, Blood 2.37 mg/dL (0.40-1.00)
[2020-04-29 15:31] LABS: C-Reactive Protein, High Sens. 58.8 mg/L (0.000-3.000)
[2020-04-29] MEDS ORDERED: Vibramycin100 MG PO (17:14)
[2020-04-29] MEDS ORDERED: CEPH500 PO (17:14)
[2020-04-29] MEDS ORDERED: HYDR1TAB94 PO (17:14)
[2020-04-29] MEDS ORDERED: Colace250 MG PO (17:14)
== END 2020-04-29 17:35 | disposition home or self-care (01) ==
LOC: ER 12:50
PROVIDERS: Emergency Medicine
DX: L03.113 Cellulitis of right upper limb (principal); I25.2 Old myocardial infarction; K21.9 Gastro-esophageal reflux disease without esophagitis; J44.9 Chronic obstructive pulmonary disease, unspecified; E11.9 Type 2 diabetes mellitus without complications; E78.5 Hyperlipidemia, unspecified; I10 Essential (primary) hypertension; Z79.82 Long term (current) use of aspirin; Z79.4 Long term (current) use of insulin; Z79.02 Long term (current) use of antithrombotics/antiplatelets; Z79.899 Other long term (current) drug therapy; Z88.8 Allergy status to other drugs, medicaments and biological substances; Z86.16 Personal history of COVID-19; Z87.891 Personal history of nicotine dependence
CPT/HCPCS: 36415; 73130; 80048; 85025; 85651; 86141; 96374; 99283-25; J2270

== ENCOUNTER 2020-05-05 18:30 | Inpatient (IN) | payer OTHER ==
[~2020-05-05] VITALS: Ht 154.9 cm; Wt 72.0 kg
[~2020-05-05 18:30] MED LIST changes: +CEPH500 PO; +Colace250 MG PO; +HYDR1TAB94 PO; +Vibramycin100 MG PO
[2020-05-05 21:58] LABS: BASOPHILS ABSOLUTE AUTO 0.06 K/mm3 (0.00-0.23); BASOPHILS PERCENT AUTO 0 % (0-2); EOSINOPHILS ABSOLUTE AUTO 0.26 K/mm3 (0.00-0.68); EOSINOPHILS PERCENT AUTO 2 % (0-6); Hemoglobin 12.5 g/dL (11.5-16.0); IMMATURE GRAN ABSOLUTE AUTO 0.09 K/mm3 (0.00-0.10); IMMATURE GRAN PERCENT AUTO 1 % (0-1); LYMPHOCYTES ABSOLUTE AUTO 2.51 K/mm3 (0.84-5.20); LYMPHOCYTES PERCENT AUTO 18 % (21-46); MONOCYTES ABSOLUTE AUTO 1.38 K/mm3 (0.16-1.47); MONOCYTES PERCENT AUTO 10 % (4-13); Mean Corpuscular HGB 26.7 pg (26.0-34.0); Mean Corpuscular HGB Conc 31.3 g/dL (31.5-36.5); Mean Corpuscular Volume 85 fL (80-100); Mean Platelet Volume 9.9 fL (9.1-12.4); NEUTROPHILS ABSOLUTE AUTO 9.92 K/mm3 (1.96-9.15); NEUTROPHILS PERCENT AUTO 70 % (41-73); Platelet Count 432 K/mm3 (150-400); RDW Coefficient Variation 16.6 % (11.7-14.2); RDW Standard Deviation 51.2 fL (35.1-46.3); Red Blood Cell Count 4.69 M/mm3 (3.80-5.20); White Blood Cell Count 14.22 K/mm3 (4.00-11.30)
[2020-05-05 22:22] LABS: Albumin, Blood 2.7 g/dL (3.4-5.0); Albumin/Globulin Ratio 0.4 (0.8-1.8); Bilirubin, Total 0.5 mg/dL (0.1-1.0); Bun/Creatinine Ratio 41.8 (12.0-20.0); Calcium, Blood 10.7 mg/dL (8.5-10.1); Creatinine, Blood 1.84 mg/dL (0.40-1.00); Potassium, Blood 3.9 mmol/L (3.5-5.5); Total Protein, Blood 8.7 g/dL (6.4-8.2)
[2020-05-05 22:34] LABS: C-Reactive Protein, High Sens. 95.5 mg/L (0.000-3.000)
[2020-05-06 00:06] LABS: Uric Acid, Blood 13.5 mg/dL (2.6-6.0)
[2020-05-06 09:57] LABS: BASOPHILS ABSOLUTE AUTO 0.04 K/mm3 (0.00-0.23); BASOPHILS PERCENT AUTO 0 % (0-2); EOSINOPHILS PERCENT AUTO 0 % (0-6); Hematocrit 36.8 % (33.0-51.0); Hemoglobin 11.3 g/dL (11.5-16.0); IMMATURE GRAN PERCENT AUTO 1 % (0-1); LYMPHOCYTES ABSOLUTE AUTO 1.45 K/mm3 (0.84-5.20); LYMPHOCYTES PERCENT AUTO 11 % (21-46); MONOCYTES ABSOLUTE AUTO 0.15 K/mm3 (0.16-1.47); MONOCYTES PERCENT AUTO 1 % (4-13); Mean Corpuscular HGB 26.5 pg (26.0-34.0); Mean Corpuscular HGB Conc 30.7 g/dL (31.5-36.5); Mean Corpuscular Volume 86 fL (80-100); Mean Platelet Volume 10.3 fL (9.1-12.4); NEUTROPHILS ABSOLUTE AUTO 11.52 K/mm3 (1.96-9.15); NEUTROPHILS PERCENT AUTO 87 % (41-73); Platelet Count 442 K/mm3 (150-400); RDW Coefficient Variation 16.6 % (11.7-14.2); RDW Standard Deviation 52.7 fL (35.1-46.3); Red Blood Cell Count 4.26 M/mm3 (3.80-5.20); White Blood Cell Count 13.26 K/mm3 (4.00-11.30)
[2020-05-06 10:14] LABS: Albumin, Blood 2.4 g/dL (3.4-5.0); Albumin/Globulin Ratio 0.5 (0.8-1.8); Bilirubin, Total 0.4 mg/dL (0.1-1.0); Calcium, Blood 9.7 mg/dL (8.5-10.1); Creatinine, Blood 1.68 mg/dL (0.40-1.00); Globulin, Blood 5.3 g/dL (2.2-4.0); Potassium, Blood 4.2 mmol/L (3.5-5.5); Total Protein, Blood 7.7 g/dL (6.4-8.2)
--- NOTE | 2020-05-06 16:57 | NUR ---
SHIFT SUMMARY ED ADMIT THIS AFTERNOON. PATIENT MEDICATED X1 FOR PAIN. DENIES NAUSEA AND SHORTNESS OF BREATH. UP SBA TO BSC. ORIENTED TO ROOM. HAND ELEVATED ON PILLOWS.
[2020-05-06] MEDS ORDERED: FLUTICASONE-SA1 EAC9 INH (18:23)
[2020-05-06] MEDS ORDERED: POTCHL20ER PO (18:26)
[2020-05-06] MEDS ORDERED: TRULICITY0.75 MG/01 SC (18:27)
--- NOTE | 2020-05-07 06:33 | NUR ---
SHIFT SUMMARY PT IS A 69 Y/O FEMALE, ADMITTED FOOR BILATERAL HAND CELLULITIS. SHE IS A&O X 4, SBA TO THE BATHROOM. SHE WAS MEDICATED ONCE DURING THE NIGHT FOR PAIN IN HER HANDS WITH PRN FENTANYL, AND HER SCHEDULED METHADONE. NO C/O NAUSEA OR SOB. VITAL SIGNS STABLE. TELE SHOWED SB IN THE 50S. HS METOPROLOL HELD DUE TO LOW HR. NO OTHER ACUTE CHANGES IN PT CONDITION NOTED DURING THE NIGHT. WILL CONTINUE TO MONITOR AND TREAT PER EMAR UNTIL HAND OFF TO DAY SHIFT RN.
[2020-05-07 07:47] LABS: BASOPHILS ABSOLUTE AUTO 0.01 K/mm3 (0.00-0.23); BASOPHILS PERCENT AUTO 0 % (0-2); EOSINOPHILS ABSOLUTE AUTO 0.01 K/mm3 (0.00-0.68); EOSINOPHILS PERCENT AUTO 0 % (0-6); Hematocrit 37.3 % (33.0-51.0); Hemoglobin 11.8 g/dL (11.5-16.0); IMMATURE GRAN ABSOLUTE AUTO 0.05 K/mm3 (0.00-0.10); IMMATURE GRAN PERCENT AUTO 0 % (0-1); LYMPHOCYTES PERCENT AUTO 12 % (21-46); MONOCYTES ABSOLUTE AUTO 0.47 K/mm3 (0.16-1.47); MONOCYTES PERCENT AUTO 4 % (4-13); Mean Corpuscular HGB Conc 31.6 g/dL (31.5-36.5); Mean Corpuscular Volume 85 fL (80-100); Mean Platelet Volume 9.8 fL (9.1-12.4); NEUTROPHILS ABSOLUTE AUTO 10.02 K/mm3 (1.96-9.15); NEUTROPHILS PERCENT AUTO 83 % (41-73); Platelet Count 417 K/mm3 (150-400); RDW Coefficient Variation 16.3 % (11.7-14.2); RDW Standard Deviation 51.1 fL (35.1-46.3); Red Blood Cell Count 4.37 M/mm3 (3.80-5.20); White Blood Cell Count 12.06 K/mm3 (4.00-11.30)
[2020-05-07 08:03] LABS: Calcium, Blood 9.5 mg/dL (8.5-10.1); Creatinine, Blood 1.45 mg/dL (0.40-1.00); Potassium, Blood 3.5 mmol/L (3.5-5.5)
--- NOTE | 2020-05-07 16:06 | NUR ---
SHIFT SUMMARY PATIENT MEDICATED WITH SCHEDULED AND PRN PAIN MEDICATION TODAY. DENIES NAUSEA AND SHORTNESS OF BREATH. UP SBA TO BR W/FWW. HANDS STILL PAINFUL AND SWOLLEN BUT LESS SO THAN YESTERDAY. VISITED IN AFTERNOON.
[2020-05-08 04:45] LABS: BASOPHILS ABSOLUTE AUTO 0.02 K/mm3 (0.00-0.23); BASOPHILS PERCENT AUTO 0 % (0-2); EOSINOPHILS PERCENT AUTO 0 % (0-6); Hematocrit 37.6 % (33.0-51.0); Hemoglobin 11.6 g/dL (11.5-16.0); IMMATURE GRAN ABSOLUTE AUTO 0.05 K/mm3 (0.00-0.10); IMMATURE GRAN PERCENT AUTO 0 % (0-1); LYMPHOCYTES PERCENT AUTO 11 % (21-46); MONOCYTES ABSOLUTE AUTO 0.63 K/mm3 (0.16-1.47); MONOCYTES PERCENT AUTO 5 % (4-13); Mean Corpuscular HGB 26.3 pg (26.0-34.0); Mean Corpuscular HGB Conc 30.9 g/dL (31.5-36.5); Mean Corpuscular Volume 85 fL (80-100); NEUTROPHILS ABSOLUTE AUTO 10.45 K/mm3 (1.96-9.15); NEUTROPHILS PERCENT AUTO 83 % (41-73); Platelet Count 414 K/mm3 (150-400); RDW Coefficient Variation 16.4 % (11.7-14.2); RDW Standard Deviation 51.2 fL (35.1-46.3); Red Blood Cell Count 4.41 M/mm3 (3.80-5.20); White Blood Cell Count 12.55 K/mm3 (4.00-11.30)
[2020-05-08 05:01] LABS: Bun/Creatinine Ratio 52.6 (12.0-20.0); Creatinine, Blood 1.54 mg/dL (0.40-1.00); Potassium, Blood 3.8 mmol/L (3.5-5.5)
--- NOTE | 2020-05-08 06:45 | NUR ---
SHIFT SUMMARY PT IS A 69 Y/O FEMALE, ADMITTED FOR BL HAND CELLULITIS VS INFLAMMATORY PROCESS. SHE IS A&O X 4, SBA TO THE BATHROOM. TELE SHOWED NSR/SBR IN THE 50-60S. VITAL SIGNS OTHERWISE STABLE. AT HS, PT BLOOD SUGAR WAS 410. THE HOSPITALIST DR SANCHEZ WAS CALLED PT DID NOT HAVE SCHEDULED COVERAGE, AND A OT DOSE OF 10 UNIT INSULIN WAS ORDERED AND ADMINISTERED AT 2300, WELL A SECOND DOSE 2 HOURS LATER IF BLOOD SUGAR WAS STILL > 300, WHICH WAS ALSO ADMINISTERED AT 0117 DUE TO BLOOD SUGAR OF 308. PT WAS MEDICATED ONCE FOR HAND PAIN WITH SCHEDULED METHADONE AND PRN FENTANYL. NO C/O NAUSEA OR SOB. NO OTHER ACUTE CHANGES IN PT CONDITION NOTED. WILL CONTINUE TO MONITOR AND TREAT PER EMAR UNTIL HAND OFF TO DAY SHIFT RN.
[2020-05-08] MEDS ORDERED: CEPH500 PO (12:57)
[2020-05-08] MEDS ORDERED: Prednisone10 MG PO (12:58)
[2020-05-08] MEDS ORDERED: VISBIOME 112.51 EACH PO (12:59)
--- NOTE | 2020-05-08 13:58 | NUR ---
DISCHARGE NOTE THIS RN REMOVED PT IV AT APPROXIMATELY 1330. PT IS AOX4. THIS RN REVIEWED DC MEDICATIONS AND INSTRUCTIONS WITH PT WHO VERBALIZED AN UNDERSTANDING. PT DRESSED SELF IN HOME CLOTHING. PT'S FAMILY MEMBER ARRIVED TO TRANSPORT PT HOME. THIS RN GATHERED PT BELONGINGS FROM ROOM AND PLACED THEM IN BELONGINGS BAG. DISCHARGE VOLUNTEER ARRIVED TO TRANSPORT PT TO VEHICLE IN A WHEELCHAIR. PT WHEELED OFF THE UNIT WITH BELONGINGS PRESENT AT APPROXIMATELY 1350.
[2020-05-09 13:11] LABS: ANA DIRECT Negative (Negative)
[2020-05-09 21:08] LABS: CCP ANTIBODIES IGG/IGA 29 units (0-19)
== END 2020-05-08 13:54 | disposition home or self-care (01) | DRG 554 ==
LOC: ER 18:30 → ERHOLD 05-06 00:11 → MEDS 05-06 00:11 → ENPENDDIS 05-08 11:17 → MEDS 05-08 13:54
PROVIDERS: Emergency Medicine; Student in an Organized Health Care Education/Training Program; ADMIT Internal Medicine
DX: M06.4 Inflammatory polyarthropathy (principal); L03.012 Cellulitis of left finger; I73.9 Peripheral vascular disease, unspecified; N18.30 Chronic kidney disease, stage 3 unspecified; E11.22 Type 2 diabetes mellitus with diabetic chronic kidney disease; E11.51 Type 2 diabetes mellitus with diabetic peripheral angiopathy without gangrene; I12.9 Hypertensive chronic kidney disease with stage 1 through stage 4 chronic kidney disease, or unspecified chronic kidney disease; J44.9 Chronic obstructive pulmonary disease, unspecified; G89.29 Other chronic pain; E78.5 Hyperlipidemia, unspecified; F17.210 Nicotine dependence, cigarettes, uncomplicated; Z79.82 Long term (current) use of aspirin; Z79.02 Long term (current) use of antithrombotics/antiplatelets; Z79.4 Long term (current) use of insulin; I25.2 Old myocardial infarction; Z95.5 Presence of coronary angioplasty implant and graft
CPT/HCPCS: 36415; 73130; 80048; 80053; 82947; 83605; 84550; 85025; 85651; 86038; 86141; 86200; 86430; 96365; 96366; 96367; 96375; 96376; 99284-25; A9270; J0696; J1170; J1650; J2270; J2930; J3010; J3370; J7030; Q2038

== ENCOUNTER 2020-05-26 08:11 | Emergency (ER) | payer OTHER ==
[~2020-05-26] VITALS: Ht 154.9 cm; Wt 113.4 kg
[~2020-05-26 08:11] MED LIST changes: +FLUTICASONE-SA1 EAC9 INH; +POTCHL20ER PO; +Prednisone10 MG PO; +TRULICITY0.75 MG/01 SC; +VISBIOME 112.51 EACH PO
[2020-05-26] MEDS ORDERED: Norco 5-325 Ta1 EACH PO (10:51)
[2020-05-26] MEDS ORDERED: Prednisone20 MG PO (10:51)
[2020-05-26] MEDS ORDERED: COLCHICINE0.6 MG PO (10:59)
== END 2020-05-26 11:15 | disposition home or self-care (01) ==
LOC: ER 08:11
DX: M10.9 Gout, unspecified (principal); M79.605 Pain in left leg; I10 Essential (primary) hypertension; K21.9 Gastro-esophageal reflux disease without esophagitis; E78.5 Hyperlipidemia, unspecified; J44.9 Chronic obstructive pulmonary disease, unspecified; Z79.4 Long term (current) use of insulin; Z79.899 Other long term (current) drug therapy; Z79.02 Long term (current) use of antithrombotics/antiplatelets; Z88.8 Allergy status to other drugs, medicaments and biological substances; Z86.16 Personal history of COVID-19; Z79.52 Long term (current) use of systemic steroids; Z87.891 Personal history of nicotine dependence
CPT/HCPCS: 93971; 96374; 99283-25; A9270; J3010

== ENCOUNTER 2020-06-15 08:47 | Day surgery (SDC) | payer OTHER ==
[~2020-06-15] VITALS: Ht 154.9 cm; Wt 76.2 kg
[~2020-06-15 08:47] MED LIST changes: +COLCHICINE0.6 MG PO; +Prednisone20 MG PO
--- NOTE | 2020-06-15 09:36 | NUR ---
PT TO SDS VIA WC. VOIDS PRIOR TO PROCECURE. HISTORY VERIFIED. LS CLEAR. NPO PER PATIENT. CHEM BG 104.
--- NOTE | 2020-06-15 10:02 | NUR ---
06/15/20 1002 Myrna Alejandra H&P REVIEWED. DR DESAI PROVIDING. BITE BLOCK PLACED PRIOR TO PROCEDURE
--- NOTE | 2020-06-15 11:49 | NUR ---
PT TOLERATED PO FLUIDS AND FOOD s DIFFICULTY. GIVEN DC INSTRUCTIONS, NO QUESTIONS. VERBALIZES AN UNDERSTANDING. DRESSED s DIFFICULTY AND ESCORTED TO RESTROOM VIA WC. IV DC'D, CATH INTACT AND PRESSURE DRESSING APPLIED. PT TAKEN TO CAR VIA WC, INSTRUCTIONS GIVEN TO SO, ALSO VERBALIZES AN UNDERSTANDING.
== END 2020-06-15 22:58 | disposition home or self-care (01) ==
LOC: ORSCMMR 08:47 → ORD 08:47
PROVIDERS: Internal Medicine Gastroenterology
PROC: 0DB48ZX Excision of Esophagogastric Junction, Via Natural or Artificial Opening Endoscopic, Diagnostic (ICD-10-PCS; principal; 2020-06-15 09:45)
PROC: 0DBN8ZX Excision of Sigmoid Colon, Via Natural or Artificial Opening Endoscopic, Diagnostic (ICD-10-PCS; principal; 2020-06-15 09:45)
PROC: 0D758ZZ Dilation of Esophagus, Via Natural or Artificial Opening Endoscopic (ICD-10-PCS; principal; 2020-06-15 09:45)
PROC: 0DB58ZX Excision of Esophagus, Via Natural or Artificial Opening Endoscopic, Diagnostic (ICD-10-PCS; principal; 2020-06-15 09:45)
PROC: 0DB78ZX Excision of Stomach, Pylorus, Via Natural or Artificial Opening Endoscopic, Diagnostic (ICD-10-PCS; principal; 2020-06-15 09:45)
PROC: 0DBE8ZX Excision of Large Intestine, Via Natural or Artificial Opening Endoscopic, Diagnostic (ICD-10-PCS; principal; 2020-06-15 09:45)
DX: R13.14 Dysphagia, pharyngoesophageal phase (principal); B37.81 Candidal esophagitis; K21.9 Gastro-esophageal reflux disease without esophagitis; Z85.038 Personal history of other malignant neoplasm of large intestine; K63.5 Polyp of colon; K64.8 Other hemorrhoids; E11.9 Type 2 diabetes mellitus without complications; I25.2 Old myocardial infarction; N18.9 Chronic kidney disease, unspecified; Z79.4 Long term (current) use of insulin; Z79.899 Other long term (current) drug therapy; Z79.82 Long term (current) use of aspirin; Z79.01 Long term (current) use of anticoagulants; F17.210 Nicotine dependence, cigarettes, uncomplicated; J44.9 Chronic obstructive pulmonary disease, unspecified; I73.9 Peripheral vascular disease, unspecified
CPT/HCPCS: 82947; 88305; 88312; 88342; A9270; C1726; J2704; J7120

== ENCOUNTER 2020-06-21 00:31 | Emergency (ER) | payer OTHER ==
[~2020-06-21] VITALS: Ht 154.9 cm; Wt 77.1 kg
[2020-06-21 01:18] LABS: Source, Urine Clean Catch
[2020-06-21 01:22] LABS: Bilirubin, Urine Neg (Neg); Blood, Urine Neg (Neg); Glucose Qualitative, Urine 3+ (Neg); Ketones, Urine Neg (Neg); Leukocyte Esterase, Urine Neg (Neg); Nitrite, Urine Neg (Neg); Protein, Urine Neg (Neg); Specific Gravity, Urine 1.015 (1.003-1.022); Urobilinogen, Urine NORM (Normal)
[2020-06-21 01:22] LABS: BASOPHILS ABSOLUTE AUTO 0.05 K/mm3 (0.00-0.23); BASOPHILS PERCENT AUTO 0 % (0-2); EOSINOPHILS ABSOLUTE AUTO 0.06 K/mm3 (0.00-0.68); EOSINOPHILS PERCENT AUTO 0 % (0-6); Hematocrit 34.7 % (33.0-51.0); Hemoglobin 11.1 g/dL (11.5-16.0); IMMATURE GRAN ABSOLUTE AUTO 0.18 K/mm3 (0.00-0.10); IMMATURE GRAN PERCENT AUTO 1 % (0-1); LYMPHOCYTES ABSOLUTE AUTO 2.45 K/mm3 (0.84-5.20); LYMPHOCYTES PERCENT AUTO 15 % (21-46); MONOCYTES ABSOLUTE AUTO 1.12 K/mm3 (0.16-1.47); MONOCYTES PERCENT AUTO 7 % (4-13); Mean Corpuscular HGB 27.5 pg (26.0-34.0); Mean Corpuscular Volume 86 fL (80-100); Mean Platelet Volume 10.6 fL (9.1-12.4); NEUTROPHILS ABSOLUTE AUTO 13.04 K/mm3 (1.96-9.15); NEUTROPHILS PERCENT AUTO 77 % (41-73); NRBC ABSOLUTE 0.15 K/mm3 (0.00-0.02); NRBC Auto 0.9 /100 WBC (0.0-0.2); Platelet Count 310 K/mm3 (150-400); RDW Coefficient Variation 18.4 % (11.7-14.2); RDW Standard Deviation 57.1 fL (35.1-46.3); Red Blood Cell Count 4.04 M/mm3 (3.80-5.20)
[2020-06-21 01:25] LABS: Appearance, Urine Clear (Clear); Color, Urine Yellow (P-Yellow)
[2020-06-21 01:40] LABS: Alanine Aminotransfer (ALT/SGP 14 U/L (12-78); Albumin, Blood 2.3 g/dL (3.4-5.0); Albumin/Globulin Ratio 0.5 (0.8-1.8); Alk Phos 94 U/L (50-136); Anion Gap 7 mmol/L (6-16); Aspartate Aminotrans (AST/SGOT 12 U/L (12-37); Bilirubin, Total 0.4 mg/dL (0.1-1.0); Blood Urea Nitrogen 53 mg/dL (8-24); Bun/Creatinine Ratio 25.4 (12.0-20.0); CO2, Blood 31 mmol/L (21-32); Calcium, Blood 8.7 mg/dL (8.5-10.1); Chloride, Blood 99 mmol/L (98-108); Creatinine, Blood 2.09 mg/dL (0.40-1.00); Ethanol (Alcohol), Blood, Med <3 mg/dL; Globulin, Blood 4.4 g/dL (2.2-4.0); Glomerular Filtration Rate 25 (60-); Glucose, Blood 141 mg/dL (70-99); Sodium, Blood 137 mmol/L (136-145); Total Protein, Blood 6.7 g/dL (6.4-8.2)
== END 2020-06-21 03:03 | disposition home or self-care (01) ==
LOC: ER 00:31
PROVIDERS: Emergency Medicine
DX: M79.10 Myalgia, unspecified site (principal); E11.9 Type 2 diabetes mellitus without complications; I10 Essential (primary) hypertension; J44.9 Chronic obstructive pulmonary disease, unspecified; K21.9 Gastro-esophageal reflux disease without esophagitis; F17.200 Nicotine dependence, unspecified, uncomplicated; Z79.899 Other long term (current) drug therapy; Z88.8 Allergy status to other drugs, medicaments and biological substances; Z86.16 Personal history of COVID-19
CPT/HCPCS: 36415; 51702; 71046; 80053; 81003; 85025; 99284-25; G0480

== ENCOUNTER 2020-08-14 00:14 | Day surgery (SDC) | payer OTHER | END 2020-08-14 23:00 | disposition home or self-care (01) | LOC: WOUND 00:14 | DX: E11.621 Type 2 diabetes mellitus with foot ulcer (principal); L97.522 Non-pressure chronic ulcer of other part of left foot with fat layer exposed; Z79.4 Long term (current) use of insulin; N18.9 Chronic kidney disease, unspecified; E11.22 Type 2 diabetes mellitus with diabetic chronic kidney disease; E11.42 Type 2 diabetes mellitus with diabetic polyneuropathy | CPT/HCPCS: A9270; G0463 ==

== ENCOUNTER 2020-08-21 00:11 | Day surgery (SDC) | payer OTHER | END 2020-08-21 22:53 | disposition home or self-care (01) | LOC: WOUND 00:11 | DX: E11.621 Type 2 diabetes mellitus with foot ulcer (principal); L97.422 Non-pressure chronic ulcer of left heel and midfoot with fat layer exposed; E11.42 Type 2 diabetes mellitus with diabetic polyneuropathy; Z79.4 Long term (current) use of insulin; E11.59 Type 2 diabetes mellitus with other circulatory complications | CPT/HCPCS: A9270; G0463 ==

== ENCOUNTER 2020-08-28 00:10 | Day surgery (SDC) | payer OTHER | END 2020-08-28 23:01 | disposition home or self-care (01) | LOC: WOUND 00:10 | DX: E11.621 Type 2 diabetes mellitus with foot ulcer (principal); L97.422 Non-pressure chronic ulcer of left heel and midfoot with fat layer exposed; E11.22 Type 2 diabetes mellitus with diabetic chronic kidney disease; N18.9 Chronic kidney disease, unspecified; E11.42 Type 2 diabetes mellitus with diabetic polyneuropathy; E11.59 Type 2 diabetes mellitus with other circulatory complications; Z79.4 Long term (current) use of insulin | CPT/HCPCS: 93922; A9270 ==

== ENCOUNTER 2020-09-11 00:34 | Day surgery (SDC) | payer OTHER | END 2020-09-11 23:00 | disposition home or self-care (01) | LOC: WOUND 00:34 | DX: E11.621 Type 2 diabetes mellitus with foot ulcer (principal); L97.422 Non-pressure chronic ulcer of left heel and midfoot with fat layer exposed; E11.42 Type 2 diabetes mellitus with diabetic polyneuropathy; E11.59 Type 2 diabetes mellitus with other circulatory complications; Z79.4 Long term (current) use of insulin; N18.9 Chronic kidney disease, unspecified; E11.22 Type 2 diabetes mellitus with diabetic chronic kidney disease | CPT/HCPCS: A9270 ==

== ENCOUNTER 2020-09-19 01:28 | Day surgery (SDC) | payer OTHER | END 2020-09-19 22:50 | disposition home or self-care (01) | LOC: WOUND 01:28 | DX: E11.621 Type 2 diabetes mellitus with foot ulcer (principal); L97.522 Non-pressure chronic ulcer of other part of left foot with fat layer exposed; E11.42 Type 2 diabetes mellitus with diabetic polyneuropathy; E11.59 Type 2 diabetes mellitus with other circulatory complications; Z79.4 Long term (current) use of insulin | CPT/HCPCS: A9270; G0463 ==

== ENCOUNTER 2020-09-26 04:13 | Day surgery (SDC) | payer OTHER | END 2020-09-26 23:04 | disposition home or self-care (01) | LOC: WOUND 04:13 | DX: E11.621 Type 2 diabetes mellitus with foot ulcer (principal); L97.522 Non-pressure chronic ulcer of other part of left foot with fat layer exposed; E11.42 Type 2 diabetes mellitus with diabetic polyneuropathy; Z79.4 Long term (current) use of insulin; E11.59 Type 2 diabetes mellitus with other circulatory complications; N18.9 Chronic kidney disease, unspecified; E11.22 Type 2 diabetes mellitus with diabetic chronic kidney disease | CPT/HCPCS: A9270 ==

== ENCOUNTER 2020-10-03 03:30 | Day surgery (SDC) | payer OTHER | END 2020-10-03 23:50 | disposition home or self-care (01) | LOC: WOUND 03:30 | DX: E11.621 Type 2 diabetes mellitus with foot ulcer (principal); L97.422 Non-pressure chronic ulcer of left heel and midfoot with fat layer exposed | CPT/HCPCS: A9270 ==

== ENCOUNTER 2020-10-10 03:46 | Day surgery (SDC) | payer OTHER | END 2020-10-10 22:54 | disposition home or self-care (01) | LOC: WOUND 03:46 | DX: E11.621 Type 2 diabetes mellitus with foot ulcer (principal); L97.522 Non-pressure chronic ulcer of other part of left foot with fat layer exposed; E11.42 Type 2 diabetes mellitus with diabetic polyneuropathy; Z79.4 Long term (current) use of insulin; E11.59 Type 2 diabetes mellitus with other circulatory complications; N18.9 Chronic kidney disease, unspecified; E11.22 Type 2 diabetes mellitus with diabetic chronic kidney disease | CPT/HCPCS: A9270 ==

== ENCOUNTER 2020-10-27 01:32 | Day surgery (SDC) | payer OTHER | END 2020-10-27 12:00 | disposition home or self-care (01) | LOC: WOUND 01:32 | DX: E11.621 Type 2 diabetes mellitus with foot ulcer (principal); L97.522 Non-pressure chronic ulcer of other part of left foot with fat layer exposed; E11.42 Type 2 diabetes mellitus with diabetic polyneuropathy; E11.59 Type 2 diabetes mellitus with other circulatory complications; Z79.4 Long term (current) use of insulin; N18.9 Chronic kidney disease, unspecified; E11.22 Type 2 diabetes mellitus with diabetic chronic kidney disease; Z88.8 Allergy status to other drugs, medicaments and biological substances | CPT/HCPCS: A9270 ==

== ENCOUNTER 2020-11-03 01:07 | Day surgery (SDC) | payer OTHER | END 2020-11-03 23:16 | disposition home or self-care (01) | LOC: WOUND 01:07 | DX: E11.621 Type 2 diabetes mellitus with foot ulcer (principal); L97.422 Non-pressure chronic ulcer of left heel and midfoot with fat layer exposed; E11.59 Type 2 diabetes mellitus with other circulatory complications; E11.42 Type 2 diabetes mellitus with diabetic polyneuropathy; Z79.4 Long term (current) use of insulin; E11.22 Type 2 diabetes mellitus with diabetic chronic kidney disease; N18.9 Chronic kidney disease, unspecified; Z88.8 Allergy status to other drugs, medicaments and biological substances | CPT/HCPCS: A9270 ==

== ENCOUNTER 2020-11-09 01:59 | Day surgery (SDC) | payer OTHER | END 2020-11-09 23:00 | disposition home or self-care (01) | LOC: WOUND 01:59 | DX: E11.621 Type 2 diabetes mellitus with foot ulcer (principal); L97.522 Non-pressure chronic ulcer of other part of left foot with fat layer exposed; E11.42 Type 2 diabetes mellitus with diabetic polyneuropathy; E11.59 Type 2 diabetes mellitus with other circulatory complications; Z79.4 Long term (current) use of insulin; Z88.8 Allergy status to other drugs, medicaments and biological substances | CPT/HCPCS: A9270 ==

== ENCOUNTER 2020-11-20 02:22 | Day surgery (SDC) | payer OTHER | END 2020-11-20 12:00 | disposition home or self-care (01) | LOC: WOUND 02:22 | DX: E11.621 Type 2 diabetes mellitus with foot ulcer (principal); L97.522 Non-pressure chronic ulcer of other part of left foot with fat layer exposed; E11.42 Type 2 diabetes mellitus with diabetic polyneuropathy; E11.59 Type 2 diabetes mellitus with other circulatory complications; Z79.4 Long term (current) use of insulin; N18.9 Chronic kidney disease, unspecified; E11.22 Type 2 diabetes mellitus with diabetic chronic kidney disease; Z88.8 Allergy status to other drugs, medicaments and biological substances | CPT/HCPCS: A9270; G0463 ==

== ENCOUNTER 2020-11-27 02:14 | Day surgery (SDC) | payer OTHER | END 2020-11-27 23:44 | disposition home or self-care (01) | LOC: WOUND 02:14 | DX: E11.621 Type 2 diabetes mellitus with foot ulcer (principal); L97.422 Non-pressure chronic ulcer of left heel and midfoot with fat layer exposed; E11.42 Type 2 diabetes mellitus with diabetic polyneuropathy; E11.59 Type 2 diabetes mellitus with other circulatory complications; E11.22 Type 2 diabetes mellitus with diabetic chronic kidney disease; N18.9 Chronic kidney disease, unspecified; Z79.4 Long term (current) use of insulin | CPT/HCPCS: A9270; G0463 ==

== ENCOUNTER 2020-12-15 01:12 | Day surgery (SDC) | payer OTHER | END 2020-12-15 23:08 | disposition home or self-care (01) | LOC: WOUND 01:12 | PROC: 0HBNXZZ Excision of Left Foot Skin, External Approach (ICD-10-PCS; principal; 2020-12-15) | DX: E11.621 Type 2 diabetes mellitus with foot ulcer (principal); L97.522 Non-pressure chronic ulcer of other part of left foot with fat layer exposed; E11.59 Type 2 diabetes mellitus with other circulatory complications; Z79.4 Long term (current) use of insulin ==

== ENCOUNTER → 2020-12-15 | Outpatient (CLI) | payer OTHER ==
[2020-12-18 13:27] LABS: Adenovirus F 40/41 Not Detected (NOT DETECT); Astrovirus Not Detected (NOT DETECT); Campylobacter Sp Not Detected (NOT DETECT); Cryptosporidium Not Detected (NOT DETECT); Cyclospora Cayetanensis Not Detected (NOT DETECT); E. Coli O157 Not Detected (NOT DETECT); Entamoeba Histolytica Not Detected (NOT DETECT); Enteroaggregative E. coli-EAEC Not Detected (NOT DETECT); Enteropathogenic E. coli-EPEC Not Detected (NOT DETECT); Enterotoxigenic E. coli-ETEC Detected (NOT DETECT); Giardia Lamblia Not Detected (NOT DETECT); Norovirus GI/GII Not Detected (NOT DETECT); Plesiomonas Shigelloides Not Detected (NOT DETECT); Salmonella Sp Not Detected (NOT DETECT); Shiga Toxin-prod E. coli-STEC Not Detected (NOT DETECT); Shigella/Enteroin E. coli-EIEC Not Detected (NOT DETECT); Vibrio Cholerae Not Detected (NOT DETECT); Vibrio Sp Not Detected (NOT DETECT); Yersinia Enterocolitica Not Detected (NOT DETECT)
[2020-12-18 13:28] LABS: Rotavirus A Not Detected (NOT DETECT); Sapovirus Not Detected (NOT DETECT)
== END | disposition home or self-care (01) ==
LOC: LAB 12:36 → LAB SHORT 12:36 → LAB FUT 12-14 13:35
PROVIDERS: Internal Medicine Gastroenterology
DX: K52.9 Noninfective gastroenteritis and colitis, unspecified (principal); R63.4 Abnormal weight loss
CPT/HCPCS: 0097U; 83993; 89055

== ENCOUNTER 2020-12-29 04:19 | Day surgery (SDC) | payer OTHER | END 2020-12-29 23:18 | disposition home or self-care (01) | LOC: WOUND 04:19 | DX: E11.621 Type 2 diabetes mellitus with foot ulcer (principal); L97.522 Non-pressure chronic ulcer of other part of left foot with fat layer exposed; E11.42 Type 2 diabetes mellitus with diabetic polyneuropathy; E11.59 Type 2 diabetes mellitus with other circulatory complications; Z79.4 Long term (current) use of insulin; N18.9 Chronic kidney disease, unspecified; E11.22 Type 2 diabetes mellitus with diabetic chronic kidney disease; Z88.8 Allergy status to other drugs, medicaments and biological substances | CPT/HCPCS: A9270; G0463 ==

== ENCOUNTER 2021-01-01 12:48 | Emergency (ER) | payer OTHER ==
[~2021-01-01] VITALS: Ht 154.9 cm; Wt 65.8 kg
[2021-01-01] MEDS ORDERED: PERCOCET 10-321 EAC1 PO (16:33)
== END 2021-01-01 17:13 | disposition home or self-care (01) ==
LOC: ER 12:48
DX: F11.23 Opioid dependence with withdrawal (principal); I12.9 Hypertensive chronic kidney disease with stage 1 through stage 4 chronic kidney disease, or unspecified chronic kidney disease; E11.22 Type 2 diabetes mellitus with diabetic chronic kidney disease; N18.9 Chronic kidney disease, unspecified; I25.2 Old myocardial infarction; K21.9 Gastro-esophageal reflux disease without esophagitis; J44.9 Chronic obstructive pulmonary disease, unspecified; F17.210 Nicotine dependence, cigarettes, uncomplicated; Z88.8 Allergy status to other drugs, medicaments and biological substances; Z79.899 Other long term (current) drug therapy; Z79.4 Long term (current) use of insulin; Z79.82 Long term (current) use of aspirin
CPT/HCPCS: 93005; 93010; 96372-59; 96374; 96375; 96376; 99284-25; J1170; J2405

== ENCOUNTER 2021-01-18 00:57 | Day surgery (SDC) | payer OTHER ==
[~2021-01-18 00:57] MED LIST changes: +PERCOCET 10-321 EAC1 PO
== END 2021-01-18 23:00 | disposition home or self-care (01) ==
LOC: WOUND 00:57
DX: E11.622 Type 2 diabetes mellitus with other skin ulcer (principal); L97.812 Non-pressure chronic ulcer of other part of right lower leg with fat layer exposed; S80.211A Abrasion, right knee, initial encounter; X58.XXXA Exposure to other specified factors, initial encounter; E11.621 Type 2 diabetes mellitus with foot ulcer; L97.522 Non-pressure chronic ulcer of other part of left foot with fat layer exposed; E11.42 Type 2 diabetes mellitus with diabetic polyneuropathy; E11.59 Type 2 diabetes mellitus with other circulatory complications; Z79.4 Long term (current) use of insulin; N18.9 Chronic kidney disease, unspecified; E11.22 Type 2 diabetes mellitus with diabetic chronic kidney disease; Z88.8 Allergy status to other drugs, medicaments and biological substances
CPT/HCPCS: 82947; A9270

== ENCOUNTER 2021-01-24 04:34 | Day surgery (SDC) | payer OTHER | END 2021-01-25 00:02 | disposition home or self-care (01) | LOC: WOUND 04:34 | PROC: 0JBN0ZZ Excision of Right Lower Leg Subcutaneous Tissue and Fascia, Open Approach (ICD-10-PCS; principal; 2021-01-24) | DX: E11.622 Type 2 diabetes mellitus with other skin ulcer (principal); L97.812 Non-pressure chronic ulcer of other part of right lower leg with fat layer exposed; L97.819 Non-pressure chronic ulcer of other part of right lower leg with unspecified severity; N18.9 Chronic kidney disease, unspecified; E11.22 Type 2 diabetes mellitus with diabetic chronic kidney disease; E11.42 Type 2 diabetes mellitus with diabetic polyneuropathy; Z88.8 Allergy status to other drugs, medicaments and biological substances; Z79.4 Long term (current) use of insulin | CPT/HCPCS: A9270 ==

== ENCOUNTER 2021-02-07 02:25 | Day surgery (SDC) | payer OTHER | END 2021-02-07 12:00 | disposition home or self-care (01) | LOC: WOUND 02:25 | DX: S80.211D Abrasion, right knee, subsequent encounter (principal); X58.XXXD Exposure to other specified factors, subsequent encounter; E11.621 Type 2 diabetes mellitus with foot ulcer; L97.522 Non-pressure chronic ulcer of other part of left foot with fat layer exposed; E11.42 Type 2 diabetes mellitus with diabetic polyneuropathy; E11.59 Type 2 diabetes mellitus with other circulatory complications; Z79.4 Long term (current) use of insulin; Z88.8 Allergy status to other drugs, medicaments and biological substances | CPT/HCPCS: G0463 ==

== ENCOUNTER 2021-11-15 10:56 | Inpatient (IN) | payer OTHER ==
[~2021-11-15] VITALS: Ht 152.4 cm; Wt 78.2 kg
[2021-11-15 11:19] LABS: Hematocrit 45.1 % (33.0-51.0); Hemoglobin 15.4 g/dL (11.5-16.0); Mean Corpuscular HGB 30.4 pg (26.0-34.0); Mean Corpuscular HGB Conc 34.1 g/dL (31.5-36.5); Mean Corpuscular Volume 89 fL (80-100); Mean Platelet Volume 12.5 fL (9.1-12.4); NRBC ABSOLUTE 0.07 K/mm3 (0.00-0.02); NRBC Auto 0.5 /100 WBC (0.0-0.2); Platelet Count 222 K/mm3 (150-400); RDW Coefficient Variation 16.4 % (11.7-14.2); RDW Standard Deviation 52.7 fL (35.1-46.3); Red Blood Cell Count 5.07 M/mm3 (3.80-5.20); White Blood Cell Count 14.69 K/mm3 (4.00-11.30)
[2021-11-15 11:31] LABS: Albumin, Blood 2.7 g/dL (3.4-5.0); Albumin/Globulin Ratio 0.6 (0.8-1.8); Bilirubin, Total 2.4 mg/dL (0.1-1.0); Bun/Creatinine Ratio 46.4 (12.0-20.0); Calcium, Blood 9.6 mg/dL (8.5-10.1); Creatinine, Blood 3.21 mg/dL (0.40-1.00); Globulin, Blood 4.6 g/dL (2.2-4.0); Potassium, Blood 4.9 mmol/L (3.5-5.5); Total Protein, Blood 7.3 g/dL (6.4-8.2)
[2021-11-15 11:38] LABS: BAND PERCENT MAN 26 % (0-8); BASOPHILS PERCENT MAN 0 % (0-2); EOSINOPHILS PERCENT MAN 0 % (0-6); LYMPHOCYTES ABSOLUTE MAN 1.17 K/mm3 (0.84-5.20); LYMPHOCYTES PERCENT MAN 8 % (21-46); METAMYELOCYTE ABSOLUTE MAN 0.14 K/mm3 (0.00-0.00); METAMYELOCYTE PERCENT MAN 1 % (0-0); MONOCYTES PERCENT MAN 13 % (4-13); NEUTROPHILS ABSOLUTE MAN 11.45 K/mm3 (1.96-9.15); SEG NEUTROPHILS PERCENT MAN 52 % (41-73); TOTAL CELLS COUNTED 100
[2021-11-15] MEDS ORDERED: METHADONE HCL10 M9 PO (13:16)
[2021-11-15] MEDS ORDERED: DILTIAZEM 24HR120 M2 PO (13:16)
[2021-11-15] MEDS ORDERED: CONSTULOSE10 GM/155 PO (13:16)
[2021-11-15] MEDS ORDERED: OXYC5 PO (13:16)
[2021-11-15] MEDS ORDERED: TRULICITY3 MG/0.5 M SQ (13:17)
[2021-11-15] MEDS ORDERED: PLAVIX75 MG PO (13:17)
[2021-11-15] MEDS ORDERED: BASAGLAR K100 UNIT/3 SC (13:17)
[2021-11-15] MEDS ORDERED: K-Dur10 MEQ (13:17)
[2021-11-15] MEDS ORDERED: NEURONTIN300 MG PO (13:18)
[2021-11-15 15:21] LABS: Source, Urine Clean Catch
[2021-11-15 15:31] LABS: Appearance, Urine Clear (Clear); Blood, Urine 3+ (Neg); Color, Urine Amber (P-Yellow); Glucose Qualitative, Urine Neg (Neg); Ketones, Urine 1+ (Neg); Leukocyte Esterase, Urine 1+ (Neg); Nitrite, Urine Neg (Neg); Protein, Urine 2+ (Neg); Specific Gravity, Urine 1.015 (1.003-1.022); Urobilinogen, Urine 2+ (Normal)
[2021-11-15 15:39] LABS: Bilirubin, Urine 1+ (Neg)
[2021-11-15 15:41] LABS: Bacteria Mod /hpf; Squamous Epithelial Cells Mod /hpf (Few); Yeast/Fungi Urine Few /hpf
--- NOTE | 2021-11-15 16:03 | NUR ---
PT ARRIVED TO UNIT FROM ED STATED COULD NOT STAND OR SCOOT OVER TO BED FROM [facility]. STAFF TRANSFERRED PT TO BED FROM [facility] USING SLIDER SHEET. ORIENTED TO USE OF CALL LIGHT. PT ABDOMEN APPEARS VERY DISTENDED, TENDER TO PALPATION AND HYPERACTIVE BT NOTED. PT MEDICATED FOR NAUSEA. STARTED NS PER ORDERS. PT APPEARS TO FALL ASLEEP DURING ASSESSMENT QUESTIONS AND IS IRRITABLE WHEN AWAKENED. RESTING ON L SIDE AT THIS TIME. CALL LIGHT WITHIN REACH.
--- NOTE | 2021-11-15 16:11 | NUR ---
CRITICAL LACTIC ACID OF 2.[address] RAMIREZ.
[2021-11-15] MEDS ORDERED: DILT120 PO (18:18)
[2021-11-15] MEDS ORDERED: MONT10T PO (18:20)
[2021-11-15] MEDS ORDERED: NOVOLOG FL100 UNIT/3 (18:24)
[2021-11-15] MEDS ORDERED: BUME2 (18:29)
[2021-11-15] MEDS ORDERED: ALLO100 PO (18:31)
[2021-11-16 05:04] LABS: Hematocrit 47.5 % (33.0-51.0); Hemoglobin 16.5 g/dL (11.5-16.0); Mean Corpuscular HGB 30.2 pg (26.0-34.0); Mean Corpuscular HGB Conc 34.7 g/dL (31.5-36.5); Mean Corpuscular Volume 87 fL (80-100); NRBC ABSOLUTE 0.06 K/mm3 (0.00-0.02); Platelet Count 214 K/mm3 (150-400); RDW Coefficient Variation 16.1 % (11.7-14.2); Red Blood Cell Count 5.46 M/mm3 (3.80-5.20); White Blood Cell Count 6.11 K/mm3 (4.00-11.30)
--- NOTE | 2021-11-16 05:37 | NUR ---
WITH MORNING ASSESSMENT PT IS DIFFICULT TO AROUSE AND NOT COMMUNICATING WITH STAFF. PT DOES RESPOND TO SOME VERBAL STIMULI BY OPENING EYES AND DOES SAY "OUCH" WHEN MOVED OR STERNAL RUBBED. THIS IS DIFFERENT COMPARED TO START OF SHIFT WHERE PT WOULD ANSWER SOME QUESTIONS AND WAS MORE INTERACTIVE AT TIMES. VITAL SIGNS STABLE HOWEVER SBP 108 COMPARED TO 120-130'S EARLIER AND HR 110'S COMPARED TO 70-80'S. CBG 105 WHICH HAS BEEN STEADILY DECREASING THROUGH THE NIGHT, PT DID RECIEVE 20 UNITS OF INSULIN GLARGINE AT BEDTIME. MIDNIGHT HUMALOG WAS HELD, WILL HOLD 0600 DOSE WELL PER SLIDING SCALE. NOTIFIED DR HERRING OF THESE CHANGES. DR HERRING VERIFIED THAT PT WAS CURRENTLY ON IV FLUIDS AND STATED THAT HE WOULD REVIEW PT'S CHART AND MORNING LABS WITH NO FURTHER ORDERS AT THIS TIME. WILL CONTINUE TO MONITOR.
[2021-11-16 05:46] LABS: Magnesium, Blood 3.2 mg/dL (1.6-2.4)
[2021-11-16 06:29] LABS: Calcium, Blood 8.4 mg/dL (8.5-10.1); Creatinine, Blood 2.72 mg/dL (0.40-1.00); Potassium, Blood 4.1 mmol/L (3.5-5.5)
--- NOTE | 2021-11-16 06:57 | NUR ---
SHIFT SUMMARY PT A&0X4 DURING EVENING ASSESMENT, INTERACTION SLOWLY DECLINED THROUGHT THE NIGHT (SEE NOTES).
[2021-11-16 08:04] LABS: Base Excess Venous -7.6 mmol/L; Bicarbonate Venous 19.3 mmol/L (24.0-30.0); PCO2 Venous 27.2 mmHg (38-42); pH Blood Venous 7.41 (7.34-7.37)
--- NOTE | 2021-11-16 08:07 | NUR ---
TRANSFERRED TO ICU ENTERED ROOM THIS AM TO ASSESS PT AND FOUND NONRESPONSIVE. ATTEMPTED STERNAL RUB AND THERE WAS NO REACTION FROM PT. PT DIAPHORETIC. VS WERE 101/64, HR 113 AND 80% ON RA. PLACED ON 4L NC AND SATS IMPROVED TO 94%. PT TACHYPNIC AT 28. CBG PERFORMED AND BS 88. CALLED DR MCKEON WHO CAME TO ROOM IMMEDIATELY. GAVE HALF AMP DEXTROSE 50. CBG IMPROVED TO 164. PT CONTINUED TO BE NONRESPONSIVE. BLADDER SCAN PERFORMED AND READ 216. PT TRANSFERRED TO ICU. REPORT GIVEN BEDSIDE TO OMER. NOTIFIED PT'S SPOUSE.
[2021-11-16 08:14] LABS: Hematocrit 45.7 % (33.0-51.0); Hemoglobin 15.7 g/dL (11.5-16.0); Mean Corpuscular HGB 30.1 pg (26.0-34.0); Mean Corpuscular HGB Conc 34.4 g/dL (31.5-36.5); Mean Corpuscular Volume 88 fL (80-100); Mean Platelet Volume 12.6 fL (9.1-12.4); NRBC ABSOLUTE 0.08 K/mm3 (0.00-0.02); NRBC Auto 1.4 /100 WBC (0.0-0.2); Platelet Count 243 K/mm3 (150-400); RDW Coefficient Variation 16.5 % (11.7-14.2); RDW Standard Deviation 51.5 fL (35.1-46.3); Red Blood Cell Count 5.21 M/mm3 (3.80-5.20); White Blood Cell Count 5.73 K/mm3 (4.00-11.30)
--- NOTE | 2021-11-16 08:18 | NUR ---
NOTIFIED DR MARCELINO PT TRANSFERRED TO ICU.
[2021-11-16 08:42] LABS: Albumin, Blood 2.1 g/dL (3.4-5.0); Anion Gap 21 mmol/L (6-16); Blood Urea Nitrogen 161 mg/dL (8-24); Bun/Creatinine Ratio 59.6 (12.0-20.0); CO2, Blood 19 mmol/L (21-32); Calcium, Blood 8.3 mg/dL (8.5-10.1); Chloride, Blood 98 mmol/L (98-108); Glomerular Filtration Rate 18 (60-); Glucose, Blood 154 mg/dL (70-99); Phosphorus, Blood 7.7 mg/dL (2.5-4.9); Potassium, Blood 4.2 mmol/L (3.5-5.5); Sodium, Blood 138 mmol/L (136-145)
[2021-11-16 08:49] LABS: BAND PERCENT MAN 56 % (0-8); BASOPHILS PERCENT MAN 0 % (0-2); EOSINOPHILS PERCENT MAN 0 % (0-6); LYMPHOCYTES ABSOLUTE MAN 0.68 K/mm3 (0.84-5.20); LYMPHOCYTES PERCENT MAN 12 % (21-46); METAMYELOCYTE ABSOLUTE MAN 0.22 K/mm3 (0.00-0.00); METAMYELOCYTE PERCENT MAN 4 % (0-0); MONOCYTES ABSOLUTE MAN 0.51 K/mm3 (0.16-1.47); MONOCYTES PERCENT MAN 9 % (4-13); NEUTROPHILS ABSOLUTE MAN 4.29 K/mm3 (1.96-9.15); SEG NEUTROPHILS PERCENT MAN 19 % (41-73); TOTAL CELLS COUNTED 100
[2021-11-16 08:57] LABS: Source, Urine Foley catheter
--- NOTE | 2021-11-16 08:57 | NUR ---
PT ARRIVES FROM HER ROOM TO ICU 2 OBTUNDED, NOT RESPONDING TO NAME OR STERNAL RUB. PT BREATHING TACHYPNEIC AND INEFFICIENTLY, FROM ED CALLED FOR INTUBATION, PRESENT IN ROOM. AT 0806 ARRIVES, ORDERS 0.2MG NARCAN, 0810 ADDITIONAL DOSE OF NARCAN GIVEN, DECISION TO INTUBATE TO KEEP AIRWAY PROTECTED NO IMPROVEMENT IN MENTATION. PT WITH SIZE 4 PUPILS, SLUGGISH TO RESPOND, NO RESPONSE TO VERBAL OR PAINFUL STIMULI. 0814 20 ETOMIDATE GIVEN, 100MG ROCURONIUM FOLLOWED, 0816 INTUBATED 7.5CM ETT 23CM AT GUMS, +COLOR CHANGE, +BREATH SOUNDS, OG TUBE PLACED TO LOW CONTINUOUS SUCTION WITH BROWN RETURN, ABDOMEN FIRM, DISTENDED, PALPATION ILLICITS GROANING. SIMMONS CATH PLACED, CRANBERRY COLORED RETURN, UA SENT. PT TURNED AND CLEANED OF LIQUID STOOL AND URINE. ANUS WITH PRESENCE OF PROTRUSION WITH EXCORIATION AND HEMORRHOID SWELLING. PT'S GROIN FOLDS ARE REDDENED, FINGERS ARE COOL AND CLAMMY, NO EDEMA NOTED, SKIN FRAGILE, DRY. PIV'S IN BOTH AC'S. PATENT. WRIST RESTRAINTS APPLIED, LACTIC ACID LEVEL CALLED TO WITH ORDERS REC'D. AC /.
[2021-11-16 09:24] LABS: Appearance, Urine Clear (Clear); Blood, Urine 1+ (Neg); Color, Urine Yellow (P-Yellow); Glucose Qualitative, Urine Neg (Neg); Ketones, Urine Neg (Neg); Leukocyte Esterase, Urine 1+ (Neg); Nitrite, Urine Neg (Neg); Protein, Urine 1+ (Neg); Urobilinogen, Urine 2+ (Normal)
[2021-11-16 09:50] LABS: Bilirubin, Urine 2+ (Neg)
[2021-11-16 09:51] LABS: White Blood Cells, Urine 0-2 /hpf (0-5)
[2021-11-16 09:52] LABS: Bacteria Few /hpf; Red Blood Cells, Urine 0-2 /hpf (0-2); Squamous Epithelial Cells Few /hpf (Few)
[2021-11-16 09:53] LABS: Hyaline Casts 0-2 /lpf (0-2); Yeast/Fungi Urine Few /hpf
--- NOTE | 2021-11-16 10:43 | NUR ---
HERE, PT IS NOT RESPONDING TO HIM. PT CONTINUES ON THE VENTILATOR, SETTINGS UNCHANGED. WANTS HER TO HAVE SURGERY AND "FIX THIS". SAYS THAT SHE HAS BEEN DRINKING LACTULOSE "LIKE IT'S COFFEE". ASKED TO SEE THE HEAT SET OPERATOR AND ASKED TO SPEAK WITH THE DOCTOR. IN TO SPEAK WITH HIM.
--- NOTE | 2021-11-16 11:04 | NUR ---
Pt. is vented and non-responsive. Spouse is present and requested spiritual care visit. Spouse is unsettled by the pts. condition, particularly her bowel blockage. Listen theraputically with a calming presence. Dr. Caraballo arrived to give and update. Dr. Caraballo identified Dr. Shaw as the surgeon who would be addressing Pts. blockage. Spouse displays evidence of anxiety. Prayed with Spouse. Spouse verbalized that he and pt. had not had any discussions about advanced directives. Spoused verbalized gratitude for the spiritual care visit.
--- NOTE | 2021-11-16 12:16 | NUR ---
PT WITH NO GAG OR COUGH WHEN DOING ORAL CARE, NO WITHDRAWAL TO PAIN. DROOLING ATTEMPTS TO REPOSITION HER HEAD TOWARDS HER . SCD'S IN PLACE. AT BEDSIDE. SEE ASSESSMENT.
--- NOTE | 2021-11-16 15:05 | NUR ---
PT WAS TAKEN TO CT SCAN PER ORDERS OF AT ROUGHLY 1355, LEVOPHED WAS TITRATED TO EFFECT WHILE TRANSPORTING. PT TOLERATED TRANSFER TO CT TABLE AND BACK TO BED WITHOUT INCIDENCE. PT THEN CLEANED AND LINEN CHANGED, PT CONTINUES WITH NO RESPONSES WHEN UNRESTRAINED, SHE IS FLACCID IN HER ARMS AND LEGS, HEAD HAS TO BE TURNED. OGT CONTINUES WITH GREEN/BROWN RETURN, LIQUID FROM RECTUM BARELY TINGED OF COLOR. VENT SETTINGS REMAIN THE SAME.
--- NOTE | 2021-11-16 15:57 | NUR ---
ORDERS HEAD CT, PT JUST HAD PICC LINE PLACED BY ELOISA TELLO. R/Clint CANTU CALLED TO COME ASSIST WITH TRANSFER TO CT.
--- NOTE | 2021-11-16 16:41 | NUR ---
PT RETURNS TO ROOM AFTER CT SCAN. PT'S LEVOPHED UP TO 12MCG/MIN. PT'S BP VERY LABILE, 78/52 CONTINUES TO BE DIAPHORETIC AND CLAMMY, WITHOUT ANY RESPONSES TO NOXIOUS STIMULI. BLOOD SUGAR 60, 1/2 AMP DEXTROSE GIVEN.
--- NOTE | 2021-11-16 17:09 | NUR ---
IN TO SEE PT. HE REPORTS THAT SHE SHOWS HAVING A LARGE IMPACTION, NO EVIDENCE OF ISCHEMIA OR PERFORATION. HE SAYS THAT HOPEFULLY WITH THE CONTRAST ACTING AGAINST HER COLON SHE WILL BEGIN TO PASS SOME STOOL. SHE IS UP TO 14MCG OF NOREPINEPHRINE, CONTINUES TO RIDE THE VENT, SETTINGS HAVE BEEN UNCHANGED. SHE IS HOVERING AROUND 90-92% WITH SATS. PICC TO KENDRA WITH GOOD PERFUSION AND DRAW FOR LABS. REPEAT LACTIC DRAWN MOMENTS AGO. PT CONTINUES WITH NO RESPONSE TO NOXIOUS STIMULI, FEET SCRATCH, STERNAL RUB, HEAD TURN, LOUD NOISE. PUPILS ARE 4-5 AND SLOW TO RESPOND. HEART RATE REMAINS 90'S. SIMMONS WITH LITTLE URINE OUTPUT, DARK ANU IN COLOR. NO FURTHER RETURN FROM COLON.
--- NOTE | 2021-11-16 19:00 | NUR ---
ASSUMED CARE ASSUMED CARE AT 1900. PT INTUBATED WITH VENT SETTINGS OF AC/VC 16/315/7/60% RESPIRATIONS OF 16. NO SPONTANEOUS MOVEMENT NOTED. LEVOPHED GTT AT 14MCG/MIN, VASOPRESSIN GTT AT 0.04 UNITS/MIN TO MAINTAIN MAP GREATER THAN 65. NS AT 125ML/HR. SIMMONS PATENT, DRAINING TEA COLORED URINE. OG TO LIS. SCDS TO BLE. PT CHANGED TO DNR STATUS PER DR. SLOAN. EEG TO BE DONE TONIGHT.
--- NOTE | 2021-11-17 00:48 | NUR ---
HYPOGLYCEMIA PT POC CBG CHECKED AT 0002. RESULT OF 37. ONE AMP D50 GIVEN. RECHECKED AT 0046 CBG 122.
[2021-11-17 03:27] LABS: Hematocrit 37.1 % (33.0-51.0); Hemoglobin 12.1 g/dL (11.5-16.0); Mean Corpuscular HGB 30.3 pg (26.0-34.0); Mean Corpuscular HGB Conc 32.6 g/dL (31.5-36.5); Mean Platelet Volume 12.8 fL (9.1-12.4); NRBC ABSOLUTE 0.09 K/mm3 (0.00-0.02); NRBC Auto 1.3 /100 WBC (0.0-0.2); Platelet Count 168 K/mm3 (150-400); RDW Coefficient Variation 17.3 % (11.7-14.2); RDW Standard Deviation 59.4 fL (35.1-46.3); Red Blood Cell Count 3.99 M/mm3 (3.80-5.20); White Blood Cell Count 6.69 K/mm3 (4.00-11.30)
--- NOTE | 2021-11-17 03:50 | NUR ---
HYPOGLYCEMIA/ CALL TO [address] HERRING NOTIFIED AND NEW ORDERS RECIEVED. 0330 1/2 AMP D50 GIVEN AND D5 1/2 NS AT 75ML/HR.
[2021-11-17 03:51] LABS: Mean Corpuscular Volume 93 fL (80-100)
[2021-11-17 03:52] LABS: Albumin, Blood 2.2 g/dL (3.4-5.0); Anion Gap 18 mmol/L (6-16); Blood Urea Nitrogen 155 mg/dL (8-24); Bun/Creatinine Ratio 58.7 (12.0-20.0); CO2, Blood 17 mmol/L (21-32); Calcium, Blood 6.7 mg/dL (8.5-10.1); Chloride, Blood 103 mmol/L (98-108); Creatinine, Blood 2.64 mg/dL (0.40-1.00); Glomerular Filtration Rate 19 (60-); Glucose, Blood 91 mg/dL (70-99); Phosphorus, Blood 6.7 mg/dL (2.5-4.9); Potassium, Blood 4.4 mmol/L (3.5-5.5); Sodium, Blood 138 mmol/L (136-145)
--- NOTE | 2021-11-17 04:04 | NUR ---
CALL TO MD CALL PLACED TO DR SLOAN AT 0403 REGARDING CURRENT CONDITION. NOTIFIED OF INCREASED TEMP, INCREASED PRESSOR REQUIREMENTS, DECREASED URINE OUTPUT, DECREASED CBG, LACTIC ACID 4.9. VENT SETTINGS PEEP 10, FIO2 100%. NO NEW ORDERS AT THIS TIME.
[2021-11-17 05:32] LABS: BAND PERCENT MAN 65 % (0-8); BASOPHILS PERCENT MAN 0 % (0-2); EOSINOPHILS PERCENT MAN 0 % (0-6); LYMPHOCYTES PERCENT MAN 12 % (21-46); METAMYELOCYTE ABSOLUTE MAN 0.53 K/mm3 (0.00-0.00); METAMYELOCYTE PERCENT MAN 8 % (0-0); MONOCYTES ABSOLUTE MAN 0.26 K/mm3 (0.16-1.47); MONOCYTES PERCENT MAN 4 % (4-13); MYELOCYTE ABSOLUTE MAN 0.06 K/mm3 (0.00-0.00); MYELOCYTE PERCENT MAN 1 % (0-0); NEUTROPHILS ABSOLUTE MAN 5.01 K/mm3 (1.96-9.15); SEG NEUTROPHILS PERCENT MAN 10 % (41-73); TOTAL CELLS COUNTED 100
--- NOTE | 2021-11-17 06:23 | NUR ---
SHIFT SUMMARY PT INTUBATED WITH NO SEDATION. VENT SETTINGS 16/315/10/100% RR 16-28. NO SPONTANEOUS MOVEMENT NOTED. NO RESPONSE TO NOXIOUS STIMULI. PUPILS SLUGGISH AND 7MM. CORNEAL REFLEX NEGATIVE. EEG COMPLETED THIS SHIFT. NSR 80-90s. HYPOTENSIVE T/O SHIFT. LEVOPHED GTT BETWEEN 10-20MCG/MIN AND VASOPRESSIN GTT 0.04 UNITS/MIN TO MAINTAIN MAP GREATER THEN 65. CURRENTLY LEVOPHED AT 20MCG/MIN. SIMMONS TEMP PATENT AND DRAINING TEA COLORED URINE. OUTPUT T/O SHIFT 45CC. TEMP MAX 100.8, ICE BAGS PLACED WITH IMPROVMENT. TEMP CURRENTLY 100.5. OG TO LIS. SCDS TO BLE. D51/2NS STARTED 75ML/HR TO MAINTAIN STABLE CBG.
[2021-11-17 07:49] LABS: PCO2 Arterial 35.7 mmHg (35-45); PO2 Arterial 78.9 mmHg (80-100)
[2021-11-17 07:50] LABS: pH Blood Arterial 7.16 (7.35-7.45)
--- NOTE | 2021-11-17 07:51 | NUR ---
CARE OF PT ASSUMED AT 0700, BEDSIDE REPORT TAKEN. PT UNRESPONISVE ON MECH VENT. AC 16/315/100%/10. SATS 82-89%. PT UNRESPONSIVE OTHER THAN BREATHING OVER VENT, RATE AROUND MID 20'S. PUPILS FIX AT 7MM. NO RESPONSE TO PAIN, NO COUGH, NO GAG. ABSENT PLANTAR AND CORNEAL REFLEX. MAP AROUND 60 ON LEVOPHED AT 20MCG, VASOPRESSIN AT 0.04UNITS. DR SLOAN CALLED THIS AM AND UPDATED. ABG ORDERED, CA ORDERED. COMMUNICATIONS ELECTRICIAN SUPERVISOR CALLED PT'S AND DAUGHTER TO GIVE UPDATE.
--- NOTE | 2021-11-17 10:31 | NUR ---
PT HAS HAD NO SEDATION, REMAINS UNRESPONSIVE OTHER THAN BREATHING OVER VENT. BP IMPROVED AFTER CA. ABG COMPLETED, RESULTS GIVEN TO DR SLOAN. DR SLAON SPOKE W PT'S AT BEDSIDE. COMFORT CARE MAY BE AN OPTION. PT TO CT FOR CTA OF HEAD/NECK.
--- NOTE | 2021-11-17 12:48 | NUR ---
DR SLOAN UPDATED BOTH PT'S AND DAUGHTER. PER PT'S THE FAMILY WANTS TO MAKE PT COMFORT CARE TOMMORROW, THEY WANT TO GIVE FAMILY OPPORTUNITY TO COME IN AND SEE PT. HE WILL CALL TOMORROW AND LET NURSE KNOW WHEN TO WITHDRAWAL CARE, HE STATES HE HAS SAID HIS GOODBYES NOW AND DOES NOT FEEL HE CAN BE HERE FOR WITHDRAWAL OF CARE.
--- NOTE | 2021-11-17 14:19 | NUR ---
AT 1404 PT WENT INTO ASYSTOLE RHYTHM. PT DNR. TIME OF 1405. DR SLOAN AT BEDSIDE SHORTLY AFTER AT 1410. PT'S VICTORIANO NOTIFIED WELL PT'S DAUGHTER. TUBE SORTER HAD BEEN AT BEDSIDE PRIOR TO ASYSTOLE RHYTHM.
--- NOTE | 2021-11-17 16:28 | NUR ---
[facility] CALLED PER FAMILY REQUEST AND NOTIFIED. PT HAS NOT YET BEEN RELEASED BY EYE BANK. ICE PACK WAS PLACED OVER EYES POSTMORTEM
== END 2021-11-17 14:05 | DRG 388 ==
LOC: ER 10:56 → SURS 13:03 → ICUE 13:03 → SURS 15:22 → ICUE 11-16 07:51
PROVIDERS: Emergency Medicine; Family Medicine; Internal Medicine Critical Care Medicine; Nurse Practitioner Acute Care; ADMIT Internal Medicine
PROC: 3E033XZ Introduction of Vasopressor into Peripheral Vein, Percutaneous Approach (ICD-10-PCS; principal; 2021-11-16)
PROC: 5A1945Z Respiratory Ventilation, 24-96 Consecutive Hours (ICD-10-PCS; 2021-11-16)
PROC: 0BH17EZ Insertion of Endotracheal Airway into Trachea, Via Natural or Artificial Opening (ICD-10-PCS; 2021-11-16)
PROC: 02HV33Z Insertion of Infusion Device into Superior Vena Cava, Percutaneous Approach (ICD-10-PCS; 2021-11-17)
DX: K56.609 Unspecified intestinal obstruction, unspecified as to partial versus complete obstruction (principal); E11.641 Type 2 diabetes mellitus with hypoglycemia with coma; J96.01 Acute respiratory failure with hypoxia; I63.89 Other cerebral infarction; R57.9 Shock, unspecified; N18.4 Chronic kidney disease, stage 4 (severe); J98.19 Other pulmonary collapse; R65.10 Systemic inflammatory response syndrome (SIRS) of non-infectious origin without acute organ dysfunction; F11.20 Opioid dependence, uncomplicated; K59.03 Drug induced constipation; Z66 Do not resuscitate; Z51.5 Encounter for palliative care; I25.10 Atherosclerotic heart disease of native coronary artery without angina pectoris; E11.51 Type 2 diabetes mellitus with diabetic peripheral angiopathy without gangrene; E11.22 Type 2 diabetes mellitus with diabetic chronic kidney disease; R34 Anuria and oliguria; R25.3 Fasciculation; M54.9 Dorsalgia, unspecified; M19.90 Unspecified osteoarthritis, unspecified site; I12.9 Hypertensive chronic kidney disease with stage 1 through stage 4 chronic kidney disease, or unspecified chronic kidney disease; K21.9 Gastro-esophageal reflux disease without esophagitis; E78.00 Pure hypercholesterolemia, unspecified; T40.605A Adverse effect of unspecified narcotics, initial encounter; J44.9 Chronic obstructive pulmonary disease, unspecified; G89.4 Chronic pain syndrome; F17.210 Nicotine dependence, cigarettes, uncomplicated; E03.9 Hypothyroidism, unspecified; Z88.8 Allergy status to other drugs, medicaments and biological substances; Z86.16 Personal history of COVID-19; Z98.890 Other specified postprocedural states; Z87.81 Personal history of (healed) traumatic fracture; Z98.51 Tubal ligation status; I25.2 Old myocardial infarction; Z85.038 Personal history of other malignant neoplasm of large intestine; Z90.81 Acquired absence of spleen; Z90.49 Acquired absence of other specified parts of digestive tract; Z95.5 Presence of coronary angioplasty implant and graft; Z90.710 Acquired absence of both cervix and uterus; Z95.820 Peripheral vascular angioplasty status with implants and grafts; Z86.718 Personal history of other venous thrombosis and embolism; Z79.4 Long term (current) use of insulin; Z79.899 Other long term (current) drug therapy; Z79.01 Long term (current) use of anticoagulants; Z79.02 Long term (current) use of antithrombotics/antiplatelets
CPT/HCPCS: 31500; 36415; 36569; 36600; 51702; 70450; 70496; 70498; 71045; 74176; 80048; 80053; 80069; 81001; 82803; 82947; 83605; 83735; 84484; 85025; 85027; 87040; 87070; 87077; 87086; 87186; 87205; 93005; 93010; 94002; 94003; 95819; 96374; 96375; 99285-25; A9270; C1751; C9113; J0692; J0696; J1170; J1815; J2310; J2405; J7030; J7042; J7060; J7120; P9047; Q9963; Q9967